=== PATIENT | male | born 1945 | race Caucasian/White ===

== ENCOUNTER → 2016-05-24 | Outpatient (CLI) | payer MEDICARE | END | disposition home or self-care (01) | LOC: YCHH 11:44 | PROVIDERS: ATTEND Emergency Medicine | DX: N18.9 Chronic kidney disease, unspecified (principal); D64.9 Anemia, unspecified; E11.9 Type 2 diabetes mellitus without complications ==

== ENCOUNTER → 2016-12-15 | Outpatient (CLI) | payer MEDICARE | END | disposition home or self-care (01) | LOC: YCHH 11:10 | PROVIDERS: ATTEND Emergency Medicine | DX: I50.9 Heart failure, unspecified (principal); I10 Essential (primary) hypertension; E11.9 Type 2 diabetes mellitus without complications; Z12.5 Encounter for screening for malignant neoplasm of prostate | CPT/HCPCS: 80053; 80061; 83036; 84443; 85025; G0103 ==

== ENCOUNTER → 2017-05-17 | Outpatient (CLI) | payer MEDICARE | LOC: BFHH 08:39 | PROVIDERS: ATTEND Internal Medicine Nephrology | DX: N18.4 Chronic kidney disease, stage 4 (severe) (principal) ==

== ENCOUNTER → 2017-06-02 | Outpatient (CLI) | payer MEDICARE | LOC: BFHH 15:41 | PROVIDERS: ATTEND Internal Medicine Nephrology | DX: N18.4 Chronic kidney disease, stage 4 (severe) (principal) ==

== ENCOUNTER → 2017-06-28 | Outpatient (CLI) | payer MEDICARE | LOC: BFHH 15:24 | PROVIDERS: ATTEND Emergency Medicine | DX: N18.4 Chronic kidney disease, stage 4 (severe) (principal) ==

== ENCOUNTER 2017-12-17 21:40 | Emergency (ER) | payer MEDICARE ==
--- NOTE | 2017-12-17 22:03 | ED.PDOC ---
History of Present Illness - General Chief Complaint: Neuro Symptoms/Deficits Stated Complaint: WEAKNESS Time Seen by Provider: 12/17/17 21:57 Source: family Exam Limitations: no limitations Additional Information: WITNESSED ONSET OF ACUTE WEAKNESS. LAST KNOWN NL 2044. INITIALLY DYSARTHRIA WITH PROGRESSION TO L FACIAL DROOP AND FLACCID L SIDED PARALYSIS. - History of Present Illness Timing/Duration: other - 1.25 HOURS Severity: severe Improving Factors: nothing Worsening Factors: nothing Associated Symptoms: denies symptoms Allergies/Adverse Reactions: Allergies NO KNOWN ALLERGY Allergy (Verified 12/17/17 22:34) Home Medications: Ambulatory Orders Bupropion HCl [Bupropion HCl Sr] 150 mg PO DAILY 01/11/16 Citalopram Hydrobromide 40 mg PO DAILY 01/11/16 Felodipine [Felodipine ER] 10 mg PO DAILY 01/11/16 Furosemide [Lasix] 20 mg PO DAILY 01/11/16 Gemfibrozil 600 mg PO DAILY 01/11/16 Glyburide-Metformin [Glucovance 5-500 mg] 1 tab PO BID 01/11/16 HYDROcodone 10MG/APAP 325MG [[place] 10/325] 1 ea PO PRN 01/11/16 Ibuprofen 200 mg PO DAILY 01/11/16 Insulin Glargine [Toujeo Solostar] 30 unit SC BEDTIME 01/11/16 Lisinopril 40 mg PO DAILY 01/11/16 Lovastatin 20 mg PO DAILY 01/11/16 Metoprolol Tartrate 50 mg PO DAILY 01/11/16 Multiple Vitamins W/ Minerals [Multivitamin Men] 1 tab PO DAILY 01/11/16 Naproxen Sodium-Diphenhydramin [Aleve Pm 220-25 mg] 1 tab PO BEDTIME 01/11/16 Zolpidem Tartrate [Ambien] 10 mg PO DAILY 01/11/16 Review of Systems - Review of Systems Constitutional: States: chills, fever Unable to Obtain Due To: condition - PT CANNOT PROVIDE ROS, FAMILY STATES WAS IN USUAL STATE OF HEALTH PRIOR TO EVENT. Past Medical History (General) - Patient Medical History Hx Seizures: No Hx Stroke: No Hx Dementia: No Hx Asthma: No Hx of COPD: No Hx Cardiac Disorders: Yes Hx Congestive Heart Failure: No Hx Pacemaker: No Hx Hypertension: Yes Hx Thyroid Disease: No Hx Diabetes: Yes Hx Gastroesophageal Reflux: No Hx Renal Disease: No Hx Cancer: Yes - Rt foot tumor Hx of HIV: No Hx Hepatitis C: No Hx MRSA: No - Vaccination History Hx Tetanus, Diphtheria Vaccination: Yes Hx Influenza Vaccination: Yes Hx Pneumococcal Vaccination: Yes - Social History Hx Tobacco Use: No Hx Chewing Tobacco Use: No Hx Alcohol Use: Yes - years ago Hx Substance Use: No Hx Substance Use Treatment: No Hx Depression: No Hx Physical Abuse: No Hx Emotional Abuse: No Hx Suspected Abuse: No - Female History Patient : No Family Medical History - Family History Father Family History: Unknown Physical Exam - Physical Exam General Appearance: Alert, Obese - MORBID, Other - ANXIOUS Eye Exam: bilateral abnormal EOM - DEVIATED TO R Ears, Nose, Throat: hearing grossly normal, normal ENT inspection Neck: non-tender, full range of motion, supple Respiratory: lungs clear, normal breath sounds, no respiratory distress Cardiovascular/Chest: regular rate, rhythm, no murmur Gastrointestinal/Abdominal: non tender, soft, no organomegaly Back Exam: normal inspection Extremity: other - TR EDEMA Neurologic: 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 WILL RESCAN WHILE WATING FOR RADIOLOGY. 12/17/17 23:02 CT NEG PER RADIOLOGY. D/W DR HARDEN IN [facility], AGREES WITH PLAN AND OK FOR TRANSFER. D/W DR ARRIETA OK TO STOP IN ED. D/W FAMILY RISKS VS BENEFITS DISCUSSED THEY AGREE TO TPA. 12/17/17 23:41 AIR EVAC HERE, PT WILL NOT FIT IN HELICOPTER. WILL TAKE VIA GROUND, NO CHANGE IN PE 12/17/17 23:50 PT LEFT ER ENROUTE VIA GROUND FOR [facility]. 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 Copy, Patient Portal Self Enrollment Referrals: ROMINA LARIOS [Primary Care Provider] - 1-2 Weeks Home Medications: Ambulatory Orders Bupropion HCl [Bupropion HCl Sr] 150 mg PO DAILY 01/11/16 Citalopram Hydrobromide 40 mg PO DAILY 01/11/16 Felodipine [Felodipine ER] 10 mg PO DAILY 01/11/16 Furosemide [Lasix] 20 mg PO DAILY 01/11/16 Gemfibrozil 600 mg PO DAILY 01/11/16 Glyburide-Metformin [Glucovance 5-500 mg] 1 tab PO BID 01/11/16 HYDROcodone 10MG/APAP 325MG [[place] [address]] 1 ea PO PRN 01/11/16 Ibuprofen 200 mg PO DAILY 01/11/16 Insulin Glargine [Toujeo Solostar] 30 unit SC BEDTIME 01/11/16 Lisinopril 40 mg PO DAILY 01/11/16 Lovastatin 20 mg PO DAILY 01/11/16 Metoprolol Tartrate 50 mg PO DAILY 01/11/16 Multiple Vitamins W/ Minerals [Multivitamin Men] 1 tab PO DAILY 01/11/16 Naproxen Sodium-Diphenhydramin [Aleve Pm 220-25 mg] 1 tab PO BEDTIME 01/11/16 Zolpidem Tartrate [Ambien] 10 mg PO DAILY 01/11/16 Critical Care Note - Critical Care Note Total Time (mins): 100 Comments: EVENT: ACUTE CVA FINDINGS: L HEMIPARALYSIS, L CN VII DEFICIT, DYSARTHRIA SYSTEM AT RISK: NEUROLOGIC INTERVENTION: INITIATION OF TPA, EMERGENT TRANSFER TO [facility]
--- NOTE | 2017-12-17 22:52 | CT ---
PROCEDURE: CT Head Without Intravenous Contrast CLINICAL INDICATION: The patient is 72 years old and is Male; TECHNIQUE: Axial computed tomography images of the head/brain without intravenous contrast. Sagittal and coronal reformatted images were created and reviewed. This exam was performed according to our departmental dose-optimization program, which includes automated exposure control, adjustment of the mA and/or kV according to patient size and/or use of iterative reconstruction technique. COMPARISON: Prior study from one hour earlier as well as from 01/11/2016. FINDINGS: BRAIN: There are mild patchy slightly progressed areas of hypodensity in the periventricular white matter, extending into the centrum semiovale and talbot radiata bilaterally, which are felt to represent the sequela of small vessel ischemic disease (microangiopathy). Early infarcts within the first 12 hours may not be visible on noncontrast CT. The ricardo/white matter differentiation is intact. NO intra-or extra-axial fluid collections are seen. No hemorrhage. MIDLINE SHIFT: There is NO midline shift. VENTRICLES: There is moderate slightly progressed global atrophy with prominence of the ventricles, sulci and basilar cisterns. BONES/JOINTS: Hyperostosis frontalis interna is noted involving the calvarium. No acute fracture. SOFT TISSUES: See below. VASCULATURE: Intracranial vascular calcifications are noted. SINUSES: Minimal mucoperiosteal thickening of the RIGHT medial maxillary sinus is noted. The soft tissues of the scalp are unremarkable. MASTOID AIR CELLS: Unremarkable as visualized. No mastoid effusion. AUDITORY SYSTEM: There is material in the bilateral external auditory canals which presumably represents cerumen. ORBITS: There has been bilateral cataract surgery. DENTAL: There is dental hardware artifact which mildly obscures some of the posterior fossa. IMPRESSION: No acute intracranial abnormality is identified. THIS REPORT CONTAINS FINDINGS THAT MAY BE CRITICAL TO PATIENT CARE: The findings were verbally communicated via telephone conference with Dr. Anthony Pozo by Dr. Hiro Dow on 12/17/2017 10:49 PM CDT .The results were acknowledged and understood. Electronically signed by: Hiro Dow MD 12/17/2017 10:51 PM CDT
[2017-12-17] MEDS ORDERED: ALTEPLASE 100 MG ONE (22:57)
[2017-12-17] MEDS ORDERED: SODIUM CHLORIDE 0.9% 1000ML 1,000 ML ONE (23:02)
[2017-12-17] MEDS ORDERED: ALTEPLASE 100 MG IV.SOLN IV ONE ×3 (23:06→23:10)
--- NOTE | 2017-12-17 23:06 | RAD ---
EXAM DESCRIPTION: Chest,1 View CLINICAL HISTORY: 72 years Male, left side weakness COMPARISON: Chest x-ray 03/12/2016 FINDINGS: There is a vague opacity in the right midlung zone. No pneumothorax. No significant pleural effusion. Cardiac silhouette appears mildly enlarged. Degenerative changes of the spine noted. IMPRESSION: Vague opacity in the right lower lung zone which may represent an infiltrate versus atelectasis. Electronically signed by: Rey Zhong MD 12/17/2017 11:05 PM CDT
[2017-12-17 23:21] VITALS: TEMP 98.4
[2017-12-17] MEDS: ALTEPLASE 50 MG IVS ONE (23:28)
[2017-12-18 00:28] VITALS: BP 146/49; O2SAT 97
[2017-12-20] MEDS: ALTEPLASE 50 MG IVS ONE (08:07)
== END 2017-12-17 23:50 | disposition short-term general hospital (02) ==
LOC: ER 21:40
DX: I63.9 Cerebral infarction, unspecified (principal); G81.04 Flaccid hemiplegia affecting left nondominant side; R29.810 Facial weakness; R47.1 Dysarthria and anarthria; E11.9 Type 2 diabetes mellitus without complications; I10 Essential (primary) hypertension; E66.01 Morbid (severe) obesity due to excess calories; Z79.4 Long term (current) use of insulin; Z79.899 Other long term (current) drug therapy; Z85.89 Personal history of malignant neoplasm of other organs and systems; Z68.43 Body mass index [BMI] 50.0-59.9, adult
CPT/HCPCS: 36415; 70450; 71045; 80053; 82550; 82553; 82948; 84484; 85025; 85610; 85730; 93005; J2997; J7030

== ENCOUNTER 2018-05-05 20:51 | Emergency (ER) | payer MEDICARE ==
[2018-05-05] MEDS ORDERED: NITROGLYCERIN 0.4 MG 25 EA TAB SL ONE ×3 (20:54→21:09)
--- NOTE | 2018-05-05 20:59 | ED.PDOC ---
History of Present Illness - General Chief Complaint: Respiratory Problem Stated Complaint: SOB Time Seen by Provider: 05/05/18 20:59 Source: patient, family - son, EMS Exam Limitations: no limitations - History of Present Illness Initial Comments: Kim Bee 73 y/o male NH resident at [facility] stated that he had sob since yesterday which got worse earlier tonight with cough ,wheezing and low grade fever.His flu immunization UTD.No chest pains symptoms.Had history of CHF,CAD,DM,JAIMEE,CVA w/ residual left hemiparesis.Also has CPAP at bedtime but not using them instead just given O2/NC Timing/Duration: 24 hours Severity: moderate Activities at Onset: none Possible Cause: no prior episodes Improving Factors: nothing Worsening Factors: movement Associated Symptoms: cough Respiratory Risk Factors: other - chronic medical problems Allergies/Adverse Reactions: Allergies NO KNOWN ALLERGY Allergy (Verified 12/17/17 22:34) Home Medications: Ambulatory Orders Bupropion HCl [Bupropion HCl Sr] 150 mg PO DAILY 01/11/16 Citalopram Hydrobromide 40 mg PO DAILY 01/11/16 Felodipine [Felodipine ER] 10 mg PO DAILY 01/11/16 Furosemide [Lasix] 20 mg PO DAILY 01/11/16 Gemfibrozil 600 mg PO DAILY 01/11/16 Glyburide-Metformin [Glucovance 5-500 mg] 1 tab PO BID 01/11/16 HYDROcodone 10MG/APAP 325MG [[place] [address]] 1 ea PO PRN 01/11/16 Ibuprofen 200 mg PO DAILY 01/11/16 Insulin Glargine [Toujeo Solostar] 30 unit SC BEDTIME 01/11/16 Lisinopril 40 mg PO DAILY 01/11/16 Lovastatin 20 mg PO DAILY 01/11/16 Metoprolol Tartrate 50 mg PO DAILY 01/11/16 Multiple Vitamins W/ Minerals [Multivitamin Men] 1 tab PO DAILY 01/11/16 Naproxen Sodium-Diphenhydramin [Aleve Pm 220-25 mg] 1 tab PO BEDTIME 01/11/16 Zolpidem Tartrate [Ambien] 10 mg PO DAILY 01/11/16 Review of Systems - Review of Systems Constitutional: States: no symptoms reported EENTM: States: no symptoms reported Respiratory: States: see HPI, cough Cardiology: States: see HPI Gastrointestinal/Abdominal: States: no symptoms reported Genitourinary: States: frequency Musculoskeletal: States: no symptoms reported Skin: States: no symptoms reported Neurological: States: see HPI All other Systems: Reviewed and Negative, No Change from Baseline Past Medical History (General) - Patient Medical History Hx Seizures: No Hx Stroke: No Hx Dementia: No Hx Asthma: No Hx of COPD: No Hx Cardiac Disorders: Yes Hx Congestive Heart Failure: Yes Hx Pacemaker: No Hx Hypertension: Yes Hx Thyroid Disease: No Hx Diabetes: Yes Hx Gastroesophageal Reflux: No Hx Renal Disease: No Hx Cancer: Yes - Rt foot tumor Hx of HIV: No Hx Hepatitis C: No Hx MRSA: No Hx Other PMH: Yes - sleep apnea Surgical History: other - cardiac stent;right foot - Vaccination History Hx Tetanus, Diphtheria Vaccination: Yes Hx Influenza Vaccination: Yes Hx Pneumococcal Vaccination: Yes - Social History Hx Tobacco Use: No Hx Chewing Tobacco Use: No Hx Alcohol Use: Yes - years ago Hx Substance Use: No Hx Substance Use Treatment: No Hx Depression: No Hx Physical Abuse: No Hx Emotional Abuse: No Hx Suspected Abuse: No - Activities of Daily Living Patient Lives Alone: No Halfway/Assisted Living (if applicable):: [facility] - bed bound since he had CVA Grooming Ability: Minimum Assistance Eating (Feeding) Ability: Minimum Assistance Toileting Ability: Total Assistance - Female History Patient : No Family Medical History - Family History Father Family History: Unknown Hx Cardiac Disease: Yes Hx Family Cancer: Yes - dad Hx Family;Other: Alzheimers Dementia -mom Physical Exam - Physical Exam General Appearance: Alert, Anxious, No apparent distress, Other - morbidly obese Eyes, Ears, Nose, Throat Exam: PERRL/EOMI, normal ENT inspection, pharynx normal Neck: non-tender, full range of motion, supple, normal inspection Respiratory: chest non-tender, no respiratory distress, no accessory muscle use, wheezing Cardiovascular/Chest: normal peripheral pulses, tachycardia Peripheral Pulses: radial,right: 1+, radial,left: 1+ Gastrointestinal/Abdominal: non tender, soft, other - obese Extremity: no pedal edema, no calf tenderness Neurologic: alert, oriented x 3, motor weakness - left side Skin Exam: normal color, warm/dry Progress - Progress Progress: 05/05/18 21:54 Vital Signs - 8 hr 05/05/18 05/05/18 05/05/18 20:58 21:07 21:08 Temperature 100.4 F H Pulse Rate 139 H Pulse Rate [ 138 H 138 H monitor] Respiratory 28 H 28 H 27 H Rate Blood Pressure 162/117 [Left Arm] O2 Sat by Pulse 92 L 95 Oximetry 05/06/18 00:24 D/W Shauna Hanna -Hospitalist for admit but with elevated troponin need to be transferred to [facility] - Results/Orders Results/Orders: 05/05/18 21:01 SVN/Updraft Therapy .ONCE URINALYSIS Stat 05/05/18 21:15 EKG STAT 05/05/18 21:17 Sodium Chloride 0.9% 1000ML [Ns 1000 ml] 1,000 ml IVS .QD 05/05/18 21:59 BLOOD CULTURE Stat 05/05/18 22:30 EKG STAT 05/06/18 00:06 SVN/Updraft Therapy .PRN 05/06/18 00:07 SVN/Updraft Therapy .ONCE 05/06/18 09:00 [facility] Daily [facility] Daily Laboratory Results - last 24 hr 05/05/18 05/05/18 05/05/18 21:01 21:01 21:48 WBC 11.0 H RBC 4.16 L Hgb 12.2 L Hct 37.1 L MCV 89.2 MCH 29.3 MCHC 32.9 L RDW 15.5 H Plt Count 299 MPV 8.4 Absolute Neuts (auto) 9.30 H Absolute Lymphs (auto) 0.90 L Absolute Monos (auto) 0.80 Absolute Eos (auto) 0.00 Absolute Basos (auto) 0.00 Neutrophils % 84.7 H Lymphocytes % 7.9 L Monocytes % 6.8 Eosinophils % 0.2 L Basophils % 0.4 PT 12.1 H INR 1.21 H PTT (SP) 33.6 H pCO2 36 pO2 71 L HCO3 20.6 ABG pH 7.380 ABG O2 Saturation 95.7 ABG Base Excess -3.5 ABG Deoxyhemoglobin 4.2 Oxyhemoglobin % 93.3 L Carboxyhemoglobin % 1.3 Methemoglobin % Sat 1.2 Calc Total Hemoglobin 10.7 L Sodium 135 Potassium 4.0 Chloride 103 Carbon Dioxide 22 Anion Gap 14.0 BUN 44 H Creatinine 2.91 H BUN/Creatinine Ratio 15.1 Random Glucose 310 H Serum Osmolality 293.0 Lactic Acid 1.0 Calcium 8.3 L Magnesium 2.0 Total Bilirubin 0.3 Direct Bilirubin 0.1 Indirect Bilirubin 0.2 AST 12 ALT 9 L Alkaline Phosphatase 90 Creatine Kinase 69 CK-MB (CK-2) 1.8 CK-MB (CK-2) % Not Reportable Troponin I 0.14 H* B-Natriuretic Peptide 1930.0 H* Serum Total Protein 6.7 Albumin 2.6 L 05/05/18 22:59 WBC RBC Hgb Hct MCV MCH MCHC RDW Plt Count MPV Absolute Neuts (auto) Absolute Lymphs (auto) Absolute Monos (auto) Absolute Eos (auto) Absolute Basos (auto) Neutrophils % Lymphocytes % Monocytes % Eosinophils % Basophils % PT INR PTT (SP) pCO2 pO2 HCO3 ABG pH ABG O2 Saturation ABG Base Excess ABG Deoxyhemoglobin Oxyhemoglobin % Carboxyhemoglobin % Methemoglobin % Sat Calc Total Hemoglobin Sodium Potassium Chloride Carbon Dioxide Anion Gap BUN Creatinine BUN/Creatinine Ratio Random Glucose Serum Osmolality Lactic Acid Calcium Magnesium Total Bilirubin Direct Bilirubin Indirect Bilirubin AST ALT Alkaline Phosphatase Creatine Kinase CK-MB (CK-2) CK-MB (CK-2) % Troponin I 0.18 H* B-Natriuretic Peptide Serum Total Protein Albumin D/W patient family test result and needing transfer to [facility] agrred with plan - EKG/XRAY/CT EKG: Atrial, Fibrillation Comments: HR-152;PVC XRAY: chest - infiltrates right upper lobe and lung base - Additional EKG/XRAY/Consults EKG #2: Atrial, Fibrillation Departure - Departure Clinical Impression: Atrial fibrillation with RVR, CKD (chronic kidney disease) stage 3, GFR 30-59 ml/min, Non-ST elevation NC (NSTEMI), Morbid obesity with BMI of 50.0-59.9, adult, Diabetes 1.5, managed as type 1, Hemiparesis due to old cerebrovascular accident Pneumonia Qualifiers: Pneumonia type: due to unspecified organism Laterality: right Lung location: upper lobe of lung Qualified Code(s): J18.1 - Lobar pneumonia, unspecified organism CHF, acute on chronic Qualifiers: Heart failure type: unspecified Qualified Code(s): I50.9 - Heart failure, unspecified Time of Disposition: 00:33 Disposition: Transfer to Hospital Condition: Fair Departure Forms: Patient Portal Self Enrollment Referrals: ROMINA LAROIS [Primary Care Provider] - 1-2 Weeks Home Medications: Ambulatory Orders Bupropion HCl [Bupropion HCl Sr] 150 mg PO DAILY 01/11/16 Citalopram Hydrobromide 40 mg PO DAILY 01/11/16 Felodipine [Felodipine ER] 10 mg PO DAILY 01/11/16 Furosemide [Lasix] 20 mg PO DAILY 01/11/16 Gemfibrozil 600 mg PO DAILY 01/11/16 Glyburide-Metformin [Glucovance 5-500 mg] 1 tab PO BID 01/11/16 HYDROcodone 10MG/APAP 325MG [[place] ] 1 ea PO PRN 01/11/16 Ibuprofen 200 mg PO DAILY 01/11/16 Insulin Glargine [Toujeo Solostar] 30 unit SC BEDTIME 01/11/16 Lisinopril 40 mg PO DAILY 01/11/16 Lovastatin 20 mg PO DAILY 01/11/16 Metoprolol Tartrate 50 mg PO DAILY 01/11/16 Multiple Vitamins W/ Minerals [Multivitamin Men] 1 tab PO DAILY 01/11/16 Naproxen Sodium-Diphenhydramin [Aleve Pm 220-25 mg] 1 tab PO BEDTIME 01/11/16 Zolpidem Tartrate [Ambien] 10 mg PO DAILY 01/11/16 Transfer to Outside Facility - Transfer Information Accepting Provider:: D/W Dr. Jeffries-Hospitalist Accepting Facility: [facility] [place] Reason for Transfer: required specialist not available - beater tender
[2018-05-05] MEDS ORDERED: IPRATROPIUM/ALBUTEROL 3 ML VIAL NEB ONE ×2 (21:00→21:03)
[2018-05-05] MEDS ORDERED: ASPIRIN (CHEWABLE) 81 MG TAB PO ONE (21:03)
[2018-05-05] MEDS ORDERED: SODIUM CHLORIDE 0.9% 1000ML 1,000 ML IVS ONE (21:16)
[2018-05-05] MEDS ORDERED: SODIUM CHLORIDE 0.9% 1000ML 1,000 ML IVS PRN (21:17)
--- NOTE | 2018-05-05 21:31 | RAD ---
EXAM: Chest,1 View CLINICAL INDICATION: Shortness of breath COMPARISON: 12/17/2017 FINDINGS: A single view of the chest reveals mild cardiomegaly. The pulmonary vessels are unremarkable. Infiltrates are seen in the right upper lobe and right lung base. The left lung is clear. There is no pneumothorax. IMPRESSION: Right-sided pulmonary infiltrates, suspicious for pneumonia. Electronically signed by: Hans Wu MD 05/05/2018 9:28 PM ARTISTIC DIRECTOR
[2018-05-05] MEDS ORDERED: levoFLOXacin 500MG IV 500 MG in PREMIX BAG 1 BAG IVPB ONE (22:13)
[2018-05-05] MEDS ORDERED: levoFLOXacin 500MG IV 100 ML IVPB ONE (22:15)
[2018-05-05] MEDS ORDERED: INSULIN, REG.(HUMAN) 100 U/ML VIAL SUBCU ONE (22:19)
[2018-05-05] MEDS ORDERED: hydrALAZINE HCl 20 MG/ML VIAL IV ONE (23:07)
[2018-05-05] MEDS ORDERED: LABETALOL INJ 5 MG/ML VIAL ONE (23:08)
[2018-05-05] MEDS ORDERED: LABETALOL INJ 5 MG/ML VIAL IV ONE (23:11)
[2018-05-06] MEDS ORDERED: BUMETANIDE 0.25 MG/ML VIAL IV ONE (00:05)
[2018-05-06] MEDS ORDERED: LEVALBUTEROL NEBS 1.25 MG/3 ML VIAL NEB ONE (00:06)
[2018-05-06] MEDS ORDERED: HEPARIN PREMIX 500 ML ONE (00:29)
[2018-05-06] MEDS ORDERED: HEPARIN PREMIX 25,000 UNITS in PREMIX BAG 1 BAG IVS SCH (00:30)
[2018-05-06 01:10] VITALS: BP 147/83; TEMP 97.7
[2018-05-06 01:13] VITALS: O2SAT 94
== END 2018-05-06 01:00 | disposition short-term general hospital (02) ==
LOC: ER 20:51
DX: I21.4 Non-ST elevation (NSTEMI) myocardial infarction (principal); J18.9 Pneumonia, unspecified organism; I50.9 Heart failure, unspecified; I48.91 Unspecified atrial fibrillation; N18.3 Chronic kidney disease, stage 3 (moderate); E66.01 Morbid (severe) obesity due to excess calories; E10.22 Type 1 diabetes mellitus with diabetic chronic kidney disease; R00.0 Tachycardia, unspecified; I69.354 Hemiplegia and hemiparesis following cerebral infarction affecting left non-dominant side; I13.0 Hypertensive heart and chronic kidney disease with heart failure and stage 1 through stage 4 chronic kidney disease, or unspecified chronic kidney disease; I25.10 Atherosclerotic heart disease of native coronary artery without angina pectoris; Z68.43 Body mass index [BMI] 50.0-59.9, adult; Z79.4 Long term (current) use of insulin; Z79.899 Other long term (current) drug therapy
CPT/HCPCS: 36415; 36600; 71045; 80048; 80076; 82550; 82553; 82803; 82805; 82948; 83605; 83880; 84484; 85025; 85610; 85730; 87040; 87502; 93005; 94640; J1644; J1956; J3490; J7614; J7620

== ENCOUNTER → 2018-06-12 | Outpatient (CLI) | payer MEDICARE | LOC: GOCC 16:31 | PROVIDERS: ATTEND Emergency Medicine | DX: E11.40 Type 2 diabetes mellitus with diabetic neuropathy, unspecified (principal); I69.354 Hemiplegia and hemiparesis following cerebral infarction affecting left non-dominant side; E66.01 Morbid (severe) obesity due to excess calories ==

== ENCOUNTER 2018-07-07 17:00 | Emergency (ER) | payer MEDICARE ==
--- NOTE | 2018-07-07 18:34 | RAD ---
EXAM DESCRIPTION: XR Chest,1 View CLINICAL HISTORY: 73 years Male dyspnea TECHNIQUE: Single frontal view of the chest. COMPARISON: No prior exams provided for comparison. FINDINGS: Again seen is moderate enlargement of the cardiac silhouette with diffuse pulmonary vascular prominence. Mild pulmonary edema with a trace right pleural effusion. Previously seen right midlung infiltrate has nearly completely resolved. IMPRESSION: Suspected congestive heart failure with a trace right pleural effusion. Electronically signed by: Fanta Ortiz MD 07/07/2018 6:31 PM CDT
[2018-07-07] MEDS ORDERED: IPRATROPIUM/ALBUTEROL 3 ML VIAL NEB ONE (19:00)
--- NOTE | 2018-07-07 19:03 | ED.PDOC ---
History of Present Illness - General Chief Complaint: General Stated Complaint: altered mental status Time Seen by Provider: 07/07/18 17:57 Source: patient, RN notes reviewed, Vital Signs reviewed, family Exam Limitations: no limitations - History of Present Illness Initial Comments: transfer from group home for reported AMS & dyspnea beginning today. Pt. denies any pain. Recently ill from MRSA infection to his legs. No fevers, vomiting or diarrhea. Fell to his knees earlier today. Timing/Duration: 4-6 hours Severity: moderate Improving Factors: nothing Worsening Factors: nothing Associated Symptoms: confusion, fatigue, weakness Allergies/Adverse Reactions: Allergies NO KNOWN ALLERGY Allergy (Verified 12/17/17 22:34) Home Medications: Ambulatory Orders Bupropion HCl [Bupropion HCl Sr] 150 mg PO DAILY 01/11/16 Citalopram Hydrobromide 40 mg PO DAILY 01/11/16 Felodipine [Felodipine ER] 10 mg PO DAILY 01/11/16 Furosemide [Lasix] 20 mg PO DAILY 01/11/16 Gemfibrozil 600 mg PO DAILY 01/11/16 Glyburide-Metformin [Glucovance 5-500 mg] 1 tab PO BID 01/11/16 HYDROcodone 10MG/APAP 325MG [[place] [address]] 1 ea PO PRN 01/11/16 Ibuprofen 200 mg PO DAILY 01/11/16 Insulin Glargine [Toujeo Solostar] 30 unit SC BEDTIME 01/11/16 Lisinopril 40 mg PO DAILY 01/11/16 Lovastatin 20 mg PO DAILY 01/11/16 Metoprolol Tartrate 50 mg PO DAILY 01/11/16 Multiple Vitamins W/ Minerals [Multivitamin Men] 1 tab PO DAILY 01/11/16 Naproxen Sodium-Diphenhydramin [Aleve Pm 220-25 mg] 1 tab PO BEDTIME 01/11/16 Zolpidem Tartrate [Ambien] 10 mg PO DAILY 01/11/16 Review of Systems - Review of Systems Constitutional: States: see HPI EENTM: States: no symptoms reported Respiratory: States: see HPI, short of breath Cardiology: States: no symptoms reported Gastrointestinal/Abdominal: States: no symptoms reported Genitourinary: States: no symptoms reported Musculoskeletal: States: no symptoms reported Skin: States: see HPI Neurological: States: see HPI Hematologic/Lymphatic: States: no symptoms reported Past Medical History (General) - Patient Medical History Hx Seizures: No Hx Stroke: Yes Hx Dementia: Yes Hx Asthma: No Hx of COPD: Yes Hx Cardiac Disorders: Yes Hx Congestive Heart Failure: Yes Hx Pacemaker: No Hx Hypertension: Yes Hx Thyroid Disease: No Hx Diabetes: Yes Hx Gastroesophageal Reflux: No Hx Renal Disease: Yes Hx Cancer: Yes - Rt foot tumor Hx of HIV: No Hx Hepatitis C: No Hx MRSA: Yes MRSA Source:: Wound - Vaccination History Hx Tetanus, Diphtheria Vaccination: Yes Hx Influenza Vaccination: Yes Hx Pneumococcal Vaccination: Yes - Social History Hx Tobacco Use: No Hx Chewing Tobacco Use: No Hx Alcohol Use: No Hx Substance Use: No Hx Substance Use Treatment: No Hx Depression: Yes Hx Physical Abuse: No Hx Emotional Abuse: No Hx Suspected Abuse: No - Activities of Daily Living Group Home/Assisted Living (if applicable):: [facility] [place] - Female History Patient : No Family Medical History - Family History Father Family History: Unknown Hx Cardiac Disease: Yes Hx Family Cancer: Yes - dad Hx Family;Other: Alzheimers Dementia -mom Physical Exam - Physical Exam General Appearance: Alert, Comfortable Eye Exam: bilateral normal ENT Exam: normal ENT inspection Respiratory: no accessory muscle use, decreased breath sounds, crackles - RR 24 Cardiovascular/Chest: no JVD, no murmur, irregularly irregular Gastrointestinal/Abdominal: non tender, soft Extremities Exam: normal range of motion, no evidence of injury, edema Mental Status: alert, other - 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 Otherwise unchanged. Family reports he does have a h/o AF. - EKG/XRAY/CT EKG: Atrial - HR 92, nml axis, QRS, ST segments & T waves. Prolonged QT interval., Fibrillation XRAY: chest - pulmonary edema - Consult/PCP Time Called: 19:16 Consult/PCP: Dr. Montez Departure - Departure Clinical Impression: Morbid obesity with BMI of 50.0-59.9, adult, COPD (chronic obstructive pulmonary disease) with chronic bronchitis CHF, acute on chronic Qualifiers: Heart failure type: unspecified Qualified Code(s): I50.9 - Heart failure, unspecified Atrial fibrillation Qualifiers: Atrial fibrillation type: chronic Qualified Code(s): I48.2 - Chronic atrial fibrillation Renal failure Qualifiers: Renal failure chronicity: chronic Chronic kidney disease stage: unspecified stage Qualified Code(s): N18.9 - Chronic kidney disease, unspecified Time of Disposition: 19:17 Disposition: Transfer to Hospital Condition: Serious Home Medications: Ambulatory Orders Bupropion HCl [Bupropion HCl Sr] 150 mg PO DAILY 01/11/16 Citalopram Hydrobromide 40 mg PO DAILY 01/11/16 Felodipine [Felodipine ER] 10 mg PO DAILY 01/11/16 Furosemide [Lasix] 20 mg PO DAILY 01/11/16 Gemfibrozil 600 mg PO DAILY 01/11/16 Glyburide-Metformin [Glucovance 5-500 mg] 1 tab PO BID 01/11/16 HYDROcodone 10MG/APAP 325MG [[place] 10/325] 1 ea PO PRN 01/11/16 Ibuprofen 200 mg PO DAILY 01/11/16 Insulin Glargine [Toujeo Solostar] 30 unit SC BEDTIME 01/11/16 Lisinopril 40 mg PO DAILY 01/11/16 Lovastatin 20 mg PO DAILY 01/11/16 Metoprolol Tartrate 50 mg PO DAILY 01/11/16 Multiple Vitamins W/ Minerals [Multivitamin Men] 1 tab PO DAILY 01/11/16 Naproxen Sodium-Diphenhydramin [Aleve Pm 220-25 mg] 1 tab PO BEDTIME 01/11/16 Zolpidem Tartrate [Ambien] 10 mg PO DAILY 01/11/16 Transfer to Outside Facility - Transfer Information Accepting Provider:: Dr. Montez Accepting Facility: [facility] Reason for Transfer: required specialist not available
[2018-07-07] MEDS ORDERED: FUROSEMIDE INJ 40 MG/4 ML VIAL IV ONE (19:15)
[2018-07-07 20:20] VITALS: TEMP 98.1
[2018-07-07 22:07] VITALS: BP 159/92; O2SAT 96
== END 2018-07-07 20:49 | disposition short-term general hospital (02) ==
LOC: ER 17:00
DX: I50.9 Heart failure, unspecified (principal); I48.2 Chronic atrial fibrillation; J44.9 Chronic obstructive pulmonary disease, unspecified; E66.01 Morbid (severe) obesity due to excess calories; N18.9 Chronic kidney disease, unspecified; R41.82 Altered mental status, unspecified; E11.22 Type 2 diabetes mellitus with diabetic chronic kidney disease; I13.0 Hypertensive heart and chronic kidney disease with heart failure and stage 1 through stage 4 chronic kidney disease, or unspecified chronic kidney disease; F32.9 Major depressive disorder, single episode, unspecified; F03.90 Unspecified dementia, unspecified severity, without behavioral disturbance, psychotic disturbance, mood disturbance, and anxiety; Z68.43 Body mass index [BMI] 50.0-59.9, adult; Z86.73 Personal history of transient ischemic attack (TIA), and cerebral infarction without residual deficits; Z85.89 Personal history of malignant neoplasm of other organs and systems; Z79.899 Other long term (current) drug therapy; Z79.4 Long term (current) use of insulin; Z86.14 Personal history of Methicillin resistant Staphylococcus aureus infection
CPT/HCPCS: 36415; 71045; 80048; 81001; 82550; 82553; 83605; 83880; 84484; 85025; 85379; 85610; 85730; 87040; 93005; 94640; J1940; J7620

== ENCOUNTER 2018-07-19 22:04 | Emergency (ER) | payer MEDICARE ==
[2018-07-19] MEDS ORDERED: SODIUM CHLORIDE 0.9% (FLUSH) 10 ML SYG IV PRN (22:26)
[2018-07-19] MEDS ORDERED: IPRATROPIUM/ALBUTEROL 3 ML VIAL NEB ONE (22:29)
--- NOTE | 2018-07-19 22:49 | ED.PDOC ---
History of Present Illness - General Chief Complaint: Respiratory Problem Stated Complaint: "trouble breathing" Time Seen by Provider: 07/19/18 22:22 Source: patient Exam Limitations: no limitations - History of Present Illness Initial Comments: Kim Bee 73 y/o male resident at [facility] brought by EMS to ER with progressive worsening of SOB for the last one week.Has CHF,CAD,DM,JAIMEE,CVA w/ left hemiparesis.Denies cough ,fever chills.Recently hospitalized at [facility] w/ MRSA to his left leg presently on iv antibiotics. Timing/Duration: 1 week, getting worse Severity: moderate Activities at Onset: none Possible Cause: frequent episodes Improving Factors: nothing Worsening Factors: nothing Associated Symptoms: other - see hpi Allergies/Adverse Reactions: Allergies NO KNOWN ALLERGY Allergy (Verified 12/17/17 22:34) Home Medications: Ambulatory Orders Bupropion HCl [Bupropion HCl Sr] 150 mg PO DAILY 01/11/16 Felodipine [Felodipine ER] 10 mg PO DAILY 01/11/16 Furosemide [Lasix] 20 mg PO DAILY 01/11/16 Glyburide-Metformin [Glucovance 5-500 mg] 1 tab PO BID 01/11/16 HYDROcodone 10MG/APAP 325MG [[place] 103[address]] 1 ea PO PRN 01/11/16 Insulin Glargine [Toujeo Solostar] 30 unit SC BEDTIME 01/11/16 Multiple Vitamins W/ Minerals [Multivitamin Men] 1 tab PO DAILY 01/11/16 Naproxen Sodium-Diphenhydramin [Aleve Pm 220-25 mg] 1 tab PO BEDTIME 01/11/16 RX: Citalopram Hydrobromide 40 mg PO DAILY 01/11/16 RX: Gemfibrozil 600 mg PO DAILY 01/11/16 RX: Ibuprofen 200 mg PO DAILY 01/11/16 RX: Lisinopril 40 mg PO DAILY 01/11/16 RX: Lovastatin 20 mg PO DAILY 01/11/16 RX: Metoprolol Tartrate 50 mg PO DAILY 01/11/16 Zolpidem Tartrate [Ambien] 10 mg PO DAILY 01/11/16 Review of Systems - Review of Systems Constitutional: States: no symptoms reported EENTM: States: no symptoms reported Respiratory: States: see HPI Cardiology: States: no symptoms reported Gastrointestinal/Abdominal: States: no symptoms reported Genitourinary: States: no symptoms reported Musculoskeletal: States: no symptoms reported Skin: States: no symptoms reported Neurological: States: see HPI Endocrine: States: no symptoms reported Past Medical History (General) - Patient Medical History Hx Seizures: No Hx Stroke: Yes Hx Dementia: Yes Hx Asthma: No Hx of COPD: Yes Hx Cardiac Disorders: Yes - hx stent placed Hx Congestive Heart Failure: Yes Hx Pacemaker: No Hx Hypertension: Yes Hx Thyroid Disease: No Hx Diabetes: Yes Hx Gastroesophageal Reflux: No Hx Renal Disease: Yes Hx Cancer: Yes - Rt foot tumor Hx of HIV: No Hx Hepatitis C: No Hx MRSA: Yes MRSA Source:: Wound Surgical History: other - Vaccination History Hx Tetanus, Diphtheria Vaccination: Yes Hx Influenza Vaccination: Yes Hx Pneumococcal Vaccination: Yes - Social History Hx Tobacco Use: No Hx Chewing Tobacco Use: No Hx Alcohol Use: No Hx Substance Use: No Hx Substance Use Treatment: No Hx Depression: Yes Hx Physical Abuse: No Hx Emotional Abuse: No Hx Suspected Abuse: No - Activities of Daily Living Correction/Assisted Living (if applicable):: [facility] [place] - Female History Patient : No Family Medical History - Family History Father Family History: Unknown Hx Cardiac Disease: Yes Hx Family Cancer: Yes - dad Hx Family;Other: Alzheimers Dementia -mom Physical Exam - Physical Exam General Appearance: Alert, Comfortable, No apparent distress, Obese Eyes, Ears, Nose, Throat Exam: PERRL/EOMI, normal ENT inspection, TMs normal, pharynx normal Neck: non-tender, supple, normal inspection Respiratory: chest non-tender, no respiratory distress, decreased breath sounds, rales - bases Cardiovascular/Chest: normal peripheral pulses, no murmur, irregularly irregular Peripheral Pulses: radial,right: 2+, radial,left: 2+ Gastrointestinal/Abdominal: non tender, soft, no organomegaly Extremity: no pedal edema, pedal edema - +1 Neurologic: alert, oriented x 3 Skin Exam: normal color, warm/dry, rash - back of legs Lymphatic: no adenopathy Progress - Progress Progress: 07/19/18 22:55 Vital Signs - 8 hr 07/19/18 22:22 Temperature 98.1 F Pulse Rate [ 86 left] Respiratory 22 Rate Blood Pressure 155/84 [left] O2 Sat by Pulse 100 Oximetry - Results/Orders Results/Orders: 07/19/18 22:26 Sodium Chloride 0.9% (Flush) [Saline Flush Syringe] 10 ml IV PRN PRN 07/19/18 22:27 IV Care:Saline Lock per Protoc QSHIFT Telemetry .ONCE 07/19/18 22:29 SVN/Updraft Therapy .PRN 07/19/18 22:30 EKG STAT 07/20/18 09:00 Pulse Ox Daily Updrafts Daily Laboratory Results - last 24 hr 07/19/18 07/19/18 07/19/18 23:02 23:02 23:02 WBC 5.9 RBC 3.74 L Hgb 10.6 L Hct 32.7 L MCV 87.7 MCH 28.2 MCHC 32.2 L RDW 16.7 H Plt Count 310 MPV 8.3 Absolute Neuts (auto) 3.50 Absolute Lymphs (auto) 1.20 Absolute Monos (auto) 0.50 Absolute Eos (auto) 0.60 H Absolute Basos (auto) 0.00 Neutrophils % 59.1 Lymphocytes % 20.7 Monocytes % 9.0 Eosinophils % 10.6 H Basophils % 0.6 PT 12.4 H INR 1.24 H PTT (SP) 34.6 H Sodium 140 Potassium 4.4 Chloride 108 Carbon Dioxide 24 Anion Gap 12.4 BUN 31 H Creatinine 2.23 H BUN/Creatinine Ratio 13.9 Random Glucose 223 H Serum Osmolality 292.9 Lactic Acid Calcium 8.4 Total Bilirubin 0.7 AST 12 ALT 10 Alkaline Phosphatase 66 B-Natriuretic Peptide 653.0 H* Serum Total Protein 5.9 L Albumin 2.9 L Globulin 3.0 Albumin/Globulin Ratio 1.0 L 07/19/18 23:02 WBC RBC Hgb Hct MCV MCH MCHC RDW Plt Count MPV Absolute Neuts (auto) Absolute Lymphs (auto) Absolute Monos (auto) Absolute Eos (auto) Absolute Basos (auto) Neutrophils % Lymphocytes % Monocytes % Eosinophils % Basophils % PT INR PTT (SP) Sodium Potassium Chloride Carbon Dioxide Anion Gap BUN Creatinine BUN/Creatinine Ratio Random Glucose Serum Osmolality Lactic Acid 0.9 Calcium Total Bilirubin AST ALT Alkaline Phosphatase B-Natriuretic Peptide Serum Total Protein Albumin Globulin Albumin/Globulin Ratio Zoar better after Bumex IV - EKG/XRAY/CT EKG: Atrial, Fibrillation Comments: HR-84 XRAY: chest - mild chf and trace pleural effusion Departure - Departure Clinical Impression: SOB (shortness of breath), History of MRSA infection CHF exacerbation Qualifiers: Heart failure type: combined systolic and diastolic Qualified Code(s): I50.43 - Acute on chronic combined systolic (congestive) and diastolic (congestive) heart failure Time of Disposition: 00:50 Disposition: Discharge to SNF Condition: Fair Departure Forms: ED Discharge - Pt. Copy, Patient Portal Self Enrollment Referrals: JAYY SIMPSON [Primary Care Provider] - 1-2 Weeks Home Medications: Ambulatory Orders Bupropion HCl [Bupropion HCl Sr] 150 mg PO DAILY 01/11/16 Felodipine [Felodipine ER] 10 mg PO DAILY 01/11/16 Furosemide [Lasix] 20 mg PO DAILY 01/11/16 Glyburide-Metformin [Glucovance 5-500 mg] 1 tab PO BID 01/11/16 HYDROcodone 10MG/APAP 325MG [[place] [address]] 1 ea PO PRN 01/11/16 Insulin Glargine [Toujeo Solostar] 30 unit SC BEDTIME 01/11/16 Multiple Vitamins W/ Minerals [Multivitamin Men] 1 tab PO DAILY 01/11/16 Naproxen Sodium-Diphenhydramin [Aleve Pm 220-25 mg] 1 tab PO BEDTIME 01/11/16 RX: Citalopram Hydrobromide 40 mg PO DAILY 01/11/16 RX: Gemfibrozil 600 mg PO DAILY 01/11/16 RX: Ibuprofen 200 mg PO DAILY 01/11/16 RX: Lisinopril 40 mg PO DAILY 01/11/16 RX: Lovastatin 20 mg PO DAILY 01/11/16 RX: Metoprolol Tartrate 50 mg PO DAILY 01/11/16 Zolpidem Tartrate [Ambien] 10 mg PO DAILY 01/11/16 Additional Instructions: Continue with all home medications and home oxygen;Return to Emergency room as needed
[2018-07-19] MEDS ORDERED: BUMETANIDE 0.25 MG/ML VIAL IV ONE (22:52)
--- NOTE | 2018-07-19 23:28 | RAD ---
EXAM DESCRIPTION: XR Chest,1 View CLINICAL HISTORY: 73 years Male "trouble breathing", CHF TECHNIQUE: One view of the chest. COMPARISON: Comparison is made to the prior examination dated 07/07/2018. FINDINGS: Stable enlarged cardiac silhouette with diffuse pulmonary vascular prominence. Again seen is a trace right pleural effusion. No focal airspace consolidation or pneumothorax. IMPRESSION: Mild congestive heart failure with a trace right pleural effusion. Electronically signed by: Fanta Ortiz MD 07/19/2018 11:26 PM CDT
[2018-07-20] MEDS ORDERED: FUROSEMIDE 40 MG TAB PO ONE (00:27)
[2018-07-20 00:35] VITALS: BP 169/96; O2SAT 95
[2018-07-20 01:08] VITALS: TEMP 97.9
== END 2018-07-20 01:13 ==
LOC: ER 22:04
DX: I50.43 Acute on chronic combined systolic (congestive) and diastolic (congestive) heart failure (principal); R06.02 Shortness of breath; B95.62 Methicillin resistant Staphylococcus aureus infection as the cause of diseases classified elsewhere; I25.10 Atherosclerotic heart disease of native coronary artery without angina pectoris; I69.354 Hemiplegia and hemiparesis following cerebral infarction affecting left non-dominant side; F03.90 Unspecified dementia, unspecified severity, without behavioral disturbance, psychotic disturbance, mood disturbance, and anxiety; J44.9 Chronic obstructive pulmonary disease, unspecified; I13.0 Hypertensive heart and chronic kidney disease with heart failure and stage 1 through stage 4 chronic kidney disease, or unspecified chronic kidney disease; E11.22 Type 2 diabetes mellitus with diabetic chronic kidney disease; N18.9 Chronic kidney disease, unspecified; F32.9 Major depressive disorder, single episode, unspecified; Z85.89 Personal history of malignant neoplasm of other organs and systems; Z95.5 Presence of coronary angioplasty implant and graft; Z79.899 Other long term (current) drug therapy; Z79.4 Long term (current) use of insulin
CPT/HCPCS: 36415; 71045; 80053; 83605; 83880; 85025; 85610; 85730; 93005; 94640; 94760; J3490; J7620

== ENCOUNTER 2018-09-08 00:44 | Emergency (ER) | payer MEDICARE ==
[2018-09-08] MEDS: ACETAMINOPHEN 500 MG TAB PO ONE ×2 (01:31→02:16)
--- NOTE | 2018-09-08 01:37 | RAD ---
EXAM DESCRIPTION: Chest,1 View CLINICAL HISTORY: 73 years Male, shortness of breath COMPARISON: Chest x-ray July 19, 2018 FINDINGS: No consolidation. No pneumothorax. No significant pleural effusion. Mild pulmonary vascular congestion is demonstrated. There are a few streaky opacities in the right mid and lower lung zones suggestive of atelectasis. Cardiac silhouette appears mildly enlarged. Osseous structures are unremarkable. IMPRESSION: 1. Mild pulmonary vascular congestion. 2. Mild right basilar atelectasis. Electronically signed by: Rey Zhong MD 09/08/2018 1:34 AM CDT
[2018-09-08] MEDS ORDERED: diltiaZEM DRIP 125 MG in SODIUM CHLORIDE 0.9% 100ML 100 ML IVPB ONE (01:44)
[2018-09-08] MEDS ORDERED: SODIUM CHLORIDE 0.9% 100ML 100 ML IVPB ONE (01:50)
[2018-09-08] MEDS ORDERED: diltiaZEM DRIP 125 MG/25 ML VIAL IVPB ONE (01:50)
--- NOTE | 2018-09-08 01:55 | ED.PDOC ---
History of Present Illness - General Chief Complaint: Respiratory Problem Stated Complaint: short of breath, fever Time Seen by Provider: 09/08/18 01:40 Source: RN notes reviewed, Vital Signs reviewed Exam Limitations: clinical condition Additional Information: 73 YEAR OLD WHITE MALE RESIDENT OF [facility] BROUGHT HERE FOR EVALUATION OF BREATHING DIFFICULTY ONSET TODAY FROM [place] STAFF PT HAS KNOWN HISTORY OF CAD CHRONIC ATRIAL FIBRILLATION TYPE II DM CHF CHRONIC RENAL DISEASE HYPERTENSION PHYSICAL EXAM HE IS A OBESE MALE WHO IS TACHYPNIC TACHYCARDIC AND DECREASED LEVEL OF MENTAL STATUS BUT RESPONDS TO VERBAL STIMULI ABDOMINO- THORASIC BREATHING NOTED HIS SPO2 IN THE 90S AT 3 L OXYGEN DELIVERED BY [facility] CANNULA NO PERIPHERAL EDEMA NOTED - History of Present Illness Timing/Duration: unsure Severity: moderate Improving Factors: nothing Worsening Factors: nothing Associated Symptoms: shortness of breath, weakness Allergies/Adverse Reactions: Allergies NO KNOWN ALLERGY Allergy (Verified 12/17/17 22:34) Home Medications: Ambulatory Orders Bupropion HCl [Bupropion HCl Sr] 150 mg PO DAILY 01/11/16 Citalopram Hydrobromide 40 mg PO DAILY 01/11/16 Felodipine [Felodipine ER] 10 mg PO DAILY 01/11/16 Furosemide [Lasix] 20 mg PO DAILY 01/11/16 Gemfibrozil 600 mg PO DAILY 01/11/16 Glyburide-Metformin [Glucovance 5-500 mg] 1 tab PO BID 01/11/16 HYDROcodone 10MG/APAP 325MG [[place] ] 1 ea PO PRN 01/11/16 Ibuprofen 200 mg PO DAILY 01/11/16 Insulin Glargine [Toujeo Solostar] 30 unit SC BEDTIME 01/11/16 Lisinopril 40 mg PO DAILY 01/11/16 Lovastatin 20 mg PO DAILY 01/11/16 Metoprolol Tartrate 50 mg PO DAILY 01/11/16 Multiple Vitamins W/ Minerals [Multivitamin Men] 1 tab PO DAILY 01/11/16 Naproxen Sodium-Diphenhydramin [Aleve Pm 220-25 mg] 1 tab PO BEDTIME 01/11/16 Zolpidem Tartrate [Ambien] 10 mg PO DAILY 01/11/16 Review of Systems - Review of Systems Constitutional: States: no symptoms reported EENTM: States: no symptoms reported Respiratory: States: see HPI Cardiology: States: see HPI Gastrointestinal/Abdominal: States: no symptoms reported Genitourinary: States: no symptoms reported Musculoskeletal: States: no symptoms reported Skin: States: no symptoms reported Neurological: States: no symptoms reported Endocrine: States: no symptoms reported Hematologic/Lymphatic: States: no symptoms reported Past Medical History (General) - Patient Medical History Hx Seizures: No Hx Stroke: Yes Hx Dementia: Yes Hx Asthma: No Hx of COPD: Yes Hx Cardiac Disorders: Yes - hx stent placed Hx Congestive Heart Failure: Yes Hx Pacemaker: No Hx Hypertension: Yes Hx Thyroid Disease: No Hx Diabetes: Yes Hx Gastroesophageal Reflux: No Hx Renal Disease: Yes Hx Cancer: Yes - Rt foot tumor Hx of HIV: No Hx Hepatitis C: No Hx MRSA: Yes MRSA Source:: Wound Surgical History: other - Vaccination History Hx Tetanus, Diphtheria Vaccination: Yes Hx Influenza Vaccination: Yes Hx Pneumococcal Vaccination: Yes - Social History Hx Tobacco Use: No Hx Chewing Tobacco Use: No Hx Alcohol Use: No Hx Substance Use: No Hx Substance Use Treatment: No Hx Depression: Yes Hx Physical Abuse: No Hx Emotional Abuse: No Hx Suspected Abuse: No - Activities of Daily Living Prison/Assisted Living (if applicable):: [facility] - Female History Patient : No Family Medical History - Family History Father Family History: Unknown Hx Cardiac Disease: Yes Hx Family Cancer: Yes - dad Hx Family;Other: Alzheimers Dementia -mom Physical Exam - Physical Exam General Appearance: Other - MILD TO MODERATE RESPIRATORY DISTRESS Eye Exam: bilateral normal Ears, Nose, Throat: hearing grossly normal, normal ENT inspection, normal pharynx Neck: non-tender, full range of motion, supple Respiratory: chest non-tender, lungs clear, normal breath sounds, rales Cardiovascular/Chest: normal peripheral pulses, no JVD, no murmur, tachycardia Gastrointestinal/Abdominal: normal bowel sounds, non tender, soft, no pulsatile mass Back Exam: normal inspection, no CVA tenderness 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: 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 nml as tested, no motor/sensory deficits, alert, normal mood/affect, oriented x 3 Lymphatic: no adenopathy Progress - Results/Orders Results/Orders: Laboratory Tests 09/08/18 09/08/18 09/08/18 00:53 00:53 00:54 WBC 11.1 H RBC 4.34 L Hgb 11.7 L Hct 37.1 L MCV 85.4 MCH 27.0 MCHC 31.7 L RDW 16.2 H Plt Count 245 MPV 8.9 Absolute Neuts (auto) 8.80 H Absolute Lymphs (auto) 1.50 Absolute Monos (auto) 0.60 Absolute Eos (auto) 0.20 Absolute Basos (auto) 0.10 Neutrophils % 79.1 H Lymphocytes % 13.0 L Monocytes % 5.3 Eosinophils % 1.5 Basophils % 1.1 Sodium 137 Potassium 3.7 Chloride 105 Carbon Dioxide 22 Anion Gap 13.7 BUN 25 H Creatinine 2.49 H BUN/Creatinine Ratio 10.0 Random Glucose 177 H Serum Osmolality 282.6 Lactic Acid 1.0 Calcium 8.8 Total Bilirubin 1.0 AST 17 ALT 13 Alkaline Phosphatase 58 Creatine Kinase CK-MB (CK-2) CK-MB (CK-2) % Troponin I B-Natriuretic Peptide 811.0 H* Serum Total Protein 6.6 Albumin 3.3 Globulin 3.3 Albumin/Globulin Ratio 1.0 L 09/08/18 00:55 WBC RBC Hgb Hct MCV MCH MCHC RDW Plt Count MPV Absolute Neuts (auto) Absolute Lymphs (auto) Absolute Monos (auto) Absolute Eos (auto) Absolute Basos (auto) Neutrophils % Lymphocytes % Monocytes % Eosinophils % Basophils % Sodium Potassium Chloride Carbon Dioxide Anion Gap BUN Creatinine BUN/Creatinine Ratio Random Glucose Serum Osmolality Lactic Acid Calcium Total Bilirubin AST ALT Alkaline Phosphatase Creatine Kinase 70 CK-MB (CK-2) 1.7 CK-MB (CK-2) % Not Reportable Troponin I 0.03 B-Natriuretic Peptide Serum Total Protein Albumin Globulin Albumin/Globulin Ratio - EKG/XRAY/CT EKG: Atrial, Fibrillation, RVR Departure - Departure Clinical Impression: CKD (chronic kidney disease) stage 3, GFR 30-59 ml/min, CHF, acute on chronic, Morbid obesity with BMI of 50.0-59.9, adult, Diabetes 1.5, managed as type 1 Time of Disposition: 02:00 Disposition: Transfer to Hospital Condition: Fair Departure Forms: ED Discharge - Pt. Copy, Patient Portal Self Enrollment Referrals: JAYY SIMPSON [Primary Care Provider] - 1-2 Weeks Home Medications: Ambulatory Orders Bupropion HCl [Bupropion HCl Sr] 150 mg PO DAILY 01/11/16 Citalopram Hydrobromide 40 mg PO DAILY 01/11/16 Felodipine [Felodipine ER] 10 mg PO DAILY 01/11/16 Furosemide [Lasix] 20 mg PO DAILY 01/11/16 Gemfibrozil 600 mg PO DAILY 01/11/16 Glyburide-Metformin [Glucovance 5-500 mg] 1 tab PO BID 01/11/16 HYDROcodone 10MG/APAP 325MG [[place] ] 1 ea PO PRN 01/11/16 Ibuprofen 200 mg PO DAILY 01/11/16 Insulin Glargine [Toujeo Solostar] 30 unit SC BEDTIME 01/11/16 Lisinopril 40 mg PO DAILY 01/11/16 Lovastatin 20 mg PO DAILY 01/11/16 Metoprolol Tartrate 50 mg PO DAILY 01/11/16 Multiple Vitamins W/ Minerals [Multivitamin Men] 1 tab PO DAILY 01/11/16 Naproxen Sodium-Diphenhydramin [Aleve Pm 220-25 mg] 1 tab PO BEDTIME 01/11/16 Zolpidem Tartrate [Ambien] 10 mg PO DAILY 01/11/16 Comments: PT WILL BE TRANSFERED TO [facility] FOR FURTHER MANAGEMENT Transfer to Outside Facility - Transfer Information Accepting Provider:: DR Jacque JAIMES Accepting Facility: [facility] Reason for Transfer: required specialist not available - CHF ATRIAL FIB WITH RVR TYPE II DM CHRONIC RENAL DYSFUNCTION
[2018-09-08] MEDS ORDERED: FUROSEMIDE INJ 40 MG/4 ML VIAL IV ONE (01:59)
[2018-09-08 02:31] VITALS: TEMP 99.5
[2018-09-08 03:20] VITALS: O2SAT 99
[2018-09-08 03:44] VITALS: BP 119/69
== END 2018-09-08 04:05 | disposition short-term general hospital (02) ==
LOC: ER 00:44
DX: I50.9 Heart failure, unspecified (principal); N18.3 Chronic kidney disease, stage 3 (moderate); I48.91 Unspecified atrial fibrillation; R00.0 Tachycardia, unspecified; E10.22 Type 1 diabetes mellitus with diabetic chronic kidney disease; I13.0 Hypertensive heart and chronic kidney disease with heart failure and stage 1 through stage 4 chronic kidney disease, or unspecified chronic kidney disease; E66.01 Morbid (severe) obesity due to excess calories; F32.9 Major depressive disorder, single episode, unspecified; J44.9 Chronic obstructive pulmonary disease, unspecified; F03.90 Unspecified dementia, unspecified severity, without behavioral disturbance, psychotic disturbance, mood disturbance, and anxiety; Z68.43 Body mass index [BMI] 50.0-59.9, adult; Z85.89 Personal history of malignant neoplasm of other organs and systems; Z95.5 Presence of coronary angioplasty implant and graft; Z86.73 Personal history of transient ischemic attack (TIA), and cerebral infarction without residual deficits; Z79.4 Long term (current) use of insulin; Z79.899 Other long term (current) drug therapy
CPT/HCPCS: 36415; 71045; 80053; 81001; 82550; 82553; 83605; 83880; 84484; 85025; 87040; 93005; 94660; 94760; J1940; J7050

== ENCOUNTER 2018-10-21 22:47 | Emergency (ER) | payer MEDICARE ==
[2018-10-21] MEDS ORDERED: fentaNYL CITRATE INJ 50 MCG/ML AMP IV ONE (23:45)
--- NOTE | 2018-10-22 00:46 | ED.PDOC ---
History of Present Illness - General Chief Complaint: Neuro Symptoms/Deficits Stated Complaint: altered mental status all day, hypoxic Time Seen by Provider: 10/21/18 23:13 Source: EMS Exam Limitations: clinical condition - lethargic - History of Present Illness Initial Comments: Kim Bee 73 y/o male [place] resident at [facility] brought to ER by EMS after he was found to be lethargic with low Sa02-80 %.He is supposed to be on Bipap machine and had been pulling it out and had torn out the tubes. Timing/Duration: 4-6 hours Severity: moderate Improving Factors: nothing Worsening Factors: nothing Allergies/Adverse Reactions: Allergies NO KNOWN ALLERGY Allergy (Verified 12/17/17 22:34) Home Medications: Ambulatory Orders Bupropion HCl [Bupropion HCl Sr] 150 mg PO DAILY 01/11/16 Citalopram Hydrobromide 40 mg PO DAILY 01/11/16 Felodipine [Felodipine ER] 10 mg PO DAILY 01/11/16 Furosemide [Lasix] 20 mg PO DAILY 01/11/16 Gemfibrozil 600 mg PO DAILY 01/11/16 Glyburide-Metformin [Glucovance 5-500 mg] 1 tab PO BID 01/11/16 HYDROcodone 10MG/APAP 325MG [Dennison [id number]] 1 ea PO PRN 01/11/16 Ibuprofen 200 mg PO DAILY 01/11/16 Insulin Glargine [Toujeo Solostar] 30 unit SC BEDTIME 01/11/16 Lisinopril 40 mg PO DAILY 01/11/16 Lovastatin 20 mg PO DAILY 01/11/16 Metoprolol Tartrate 50 mg PO DAILY 01/11/16 Multiple Vitamins W/ Minerals [Multivitamin Men] 1 tab PO DAILY 01/11/16 Naproxen Sodium-Diphenhydramin [Aleve Pm 220-25 mg] 1 tab PO BEDTIME 01/11/16 Zolpidem Tartrate [Ambien] 10 mg PO DAILY 01/11/16 Review of Systems - Review of Systems Respiratory: States: see HPI, other - low Sa02 Neurological: States: see HPI, other - lethargy Unable to Obtain Due To: condition - lethargic Past Medical History (General) - Patient Medical History Hx Seizures: No Hx Stroke: Yes Hx Dementia: Yes Hx Asthma: No Hx of COPD: Yes Hx Cardiac Disorders: Yes - hx stent placed Hx Congestive Heart Failure: Yes Hx Pacemaker: No Hx Hypertension: Yes Hx Thyroid Disease: No Hx Diabetes: Yes Hx Gastroesophageal Reflux: No Hx Renal Disease: Yes Hx Cancer: Yes - Rt foot tumor Hx of HIV: No Hx Hepatitis C: No Hx MRSA: Yes MRSA Source:: Wound Surgical History: other - cardiac stent;right foot - Vaccination History Hx Tetanus, Diphtheria Vaccination: Yes Hx Influenza Vaccination: Yes Hx Pneumococcal Vaccination: Yes Immunizations Up to Date: Yes - Social History Hx Tobacco Use: No Hx Chewing Tobacco Use: No Hx Alcohol Use: No Hx Substance Use: No Hx Substance Use Treatment: No Hx Depression: Yes Hx Physical Abuse: No Hx Emotional Abuse: No Hx Suspected Abuse: No - Activities of Daily Living Skilled Nursing/Assisted Living (if applicable):: [facility] - Female History Patient : No - Triage Comment ED Triage Comment: Ems gave xopenex updraft for decreased saturations, stated sats increased to 100% and pt became more oriented with oxygen, EMS stated also pt pulled oxygen off all day due o confusion Family Medical History - Family History Father Family History: Unknown Hx Cardiac Disease: Yes Hx Family Cancer: Yes - dad Hx Family;Other: Alzheimers Dementia -mom Physical Exam - Physical Exam General Appearance: No apparent distress, Other - somnolent Eye Exam: bilateral normal - eyegrounds Ears, Nose, Throat: hearing grossly normal - opens eyes with voice, normal ENT inspection, normal pharynx Neck: supple, normal inspection Respiratory: chest non-tender, no respiratory distress, decreased breath sounds - bases Cardiovascular/Chest: regular rate, rhythm, no gallop, no murmur Peripheral Pulses: radial,right: 2+, radial,left: 2+ Gastrointestinal/Abdominal: non tender, soft, other - obese;very thick panniculus ,dangling skin folds;erythema scrotum with edema Back Exam: no CVA tenderness, no vertebral tenderness Extremity: pedal edema - 2 + bilaterally Neurologic: other - lethargic but opens eyes to voice Skin Exam: normal color, warm/dry, other - no pressure sore noted Progress - Progress Progress: 10/22/18 03:36 Vital Signs - 24 hr 10/21/18 10/21/18 10/21/18 23:09 23:18 23:55 Temperature 97.1 F L Pulse Rate [ 107 H 90 apical] Respiratory 32 H 26 H 18 Rate Blood Pressure 145/89 [Right Arm] O2 Sat by Pulse 92 L Oximetry 10/22/18 10/22/18 10/22/18 00:30 01:00 01:30 Temperature Pulse Rate [ 80 86 78 apical] Respiratory 19 20 19 Rate Blood Pressure 113/65 123/73 144/86 [Right Arm] O2 Sat by Pulse 99 99 100 Oximetry 10/22/18 10/22/18 10/22/18 01:45 02:01 03:14 Temperature Pulse Rate [ 80 76 apical] Respiratory 18 20 22 Rate Blood Pressure 159/96 178/130 [Right Arm] O2 Sat by Pulse 99 99 Oximetry 10/22/18 03:25 Temperature Pulse Rate [ 79 apical] Respiratory Rate Blood Pressure 166/109 [Right Arm] O2 Sat by Pulse 99 Oximetry - Results/Orders Results/Orders: Laboratory Results - last 24 hr 10/21/18 10/21/18 10/22/18 23:20 23:35 01:49 WBC 6.3 RBC 4.44 L Hgb 12.0 L Hct 37.0 L MCV 83.3 MCH 27.0 MCHC 32.4 L RDW 17.7 H Plt Count 238 MPV 9.3 Absolute Neuts (auto) 4.90 Absolute Lymphs (auto) 0.80 L Absolute Monos (auto) 0.40 Absolute Eos (auto) 0.20 Absolute Basos (auto) 0.00 Neutrophils % 78.1 H Lymphocytes % 12.3 L Monocytes % 6.5 Eosinophils % 2.4 Basophils % 0.7 PT 13.3 H INR 1.33 H PTT (SP) 31.6 pCO2 48 50 H pO2 52 L 130 H* HCO3 29.6 30.7 ABG pH 7.400 7.410 ABG O2 Saturation 87.1 L 99.7 H ABG Base Excess 4.6 5.7 ABG Deoxyhemoglobin 12.6 H 0.3 Oxyhemoglobin % 84.9 L 97.0 Carboxyhemoglobin % 0.7 0.1 L Methemoglobin % Sat 1.8 H 2.6 H Calc Total Hemoglobin 10.4 L 9.6 L Sodium 140 Potassium 4.1 Chloride 101 Carbon Dioxide 27 Anion Gap 16.1 BUN 34 H Creatinine 2.70 H BUN/Creatinine Ratio 12.6 Random Glucose 233 H Serum Osmolality 294.5 Calcium 9.0 Magnesium 2.0 Total Bilirubin 0.8 Direct Bilirubin 0.3 H Indirect Bilirubin 0.5 AST 21 ALT 12 Alkaline Phosphatase 72 Creatine Kinase 23 L CK-MB (CK-2) 1.2 CK-MB (CK-2) % Not Reportable Troponin I 0.03 Serum Total Protein 6.1 L Albumin 3.1 L Discuss all test result with daughter - EKG/XRAY/CT XRAY: chest - mild vascular congestion Departure - Departure Clinical Impression: Difficulty with BiPAP use, Morbid obesity with BMI of 50.0-59.9, adult, Sleep apnea with use of continuous positive airway pressure (CPAP), Hemiparesis due to old cerebrovascular accident Acute on chronic respiratory failure Qualifiers: Respiratory failure complication: hypoxia and hypercapnia Qualified Code(s): J96.21 - Acute and chronic respiratory failure with hypoxia; J96.22 - Acute and chronic respiratory failure with hypercapnia 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 Copy, Patient Portal Self Enrollment Referrals: JAYY SIMPSON [Primary Care Provider] - 1-2 Weeks Home Medications: Ambulatory Orders Bupropion HCl [Bupropion HCl Sr] 150 mg PO DAILY 01/11/16 Citalopram Hydrobromide 40 mg PO DAILY 01/11/16 Felodipine [Felodipine ER] 10 mg PO DAILY 01/11/16 Furosemide [Lasix] 20 mg PO DAILY 01/11/16 Gemfibrozil 600 mg PO DAILY 01/11/16 Glyburide-Metformin [Glucovance 5-500 mg] 1 tab PO BID 01/11/16 HYDROcodone 10MG/APAP 325MG [Dennison ] 1 ea PO PRN 01/11/16 Ibuprofen 200 mg PO DAILY 01/11/16 Insulin Glargine [Toujeo Solostar] 30 unit SC BEDTIME 01/11/16 Lisinopril 40 mg PO DAILY 01/11/16 Lovastatin 20 mg PO DAILY 01/11/16 Metoprolol Tartrate 50 mg PO DAILY 01/11/16 Multiple Vitamins W/ Minerals [Multivitamin Men] 1 tab PO DAILY 01/11/16 Naproxen Sodium-Diphenhydramin [Aleve Pm 220-25 mg] 1 tab PO BEDTIME 01/11/16 Zolpidem Tartrate [Ambien] 10 mg PO DAILY 01/11/16 Additional Instructions: Continue with all current medications;CPAP/BiPAP setting O2-32 %;EPAP-8;IPAP-18;RR-20;Return to emergency room as needed
--- NOTE | 2018-10-22 01:17 | RAD ---
EXAM DESCRIPTION: Chest,1 View CLINICAL HISTORY: 73 years Male, sob COMPARISON: Chest x-ray September 08, 2018 FINDINGS: No consolidation. No pneumothorax. No significant pleural effusion. Mild pulmonary vascular congestion is again noted. Cardiac silhouette appears moderately enlarged. Osseous structures are unremarkable. IMPRESSION: Mild pulmonary vascular congestion. Electronically signed by: Rey Zhong MD 10/22/2018 1:15 AM CDT
[2018-10-22 03:14] VITALS: O2SAT 99
[2018-10-22 04:18] VITALS: BP 146/100
[2018-10-22 04:32] VITALS: TEMP 98.7
== END 2018-10-22 04:31 ==
LOC: ER 22:47
DX: J96.22 Acute and chronic respiratory failure with hypercapnia (principal); J96.21 Acute and chronic respiratory failure with hypoxia; N18.9 Chronic kidney disease, unspecified; I50.40 Unspecified combined systolic (congestive) and diastolic (congestive) heart failure; E66.01 Morbid (severe) obesity due to excess calories; G47.30 Sleep apnea, unspecified; I69.359 Hemiplegia and hemiparesis following cerebral infarction affecting unspecified side; F03.90 Unspecified dementia, unspecified severity, without behavioral disturbance, psychotic disturbance, mood disturbance, and anxiety; J44.9 Chronic obstructive pulmonary disease, unspecified; I13.0 Hypertensive heart and chronic kidney disease with heart failure and stage 1 through stage 4 chronic kidney disease, or unspecified chronic kidney disease; E11.22 Type 2 diabetes mellitus with diabetic chronic kidney disease; F32.9 Major depressive disorder, single episode, unspecified; Z68.43 Body mass index [BMI] 50.0-59.9, adult; Z95.5 Presence of coronary angioplasty implant and graft; Z85.89 Personal history of malignant neoplasm of other organs and systems; Z79.899 Other long term (current) drug therapy

== ENCOUNTER 2018-10-28 17:19 | Inpatient (IN) | payer MEDICARE ==
[2018-10-28] MEDS ORDERED: cefTRIAXone SODIUM 1 GM in SODIUM CHL 0.9% 50ML MIN-BAG+ 50 ML IVPB ONE (17:28)
[2018-10-28] MEDS ORDERED: IBUPROFEN 200 MG TAB PO ONE (17:28)
[2018-10-28] MEDS ORDERED: IPRATROPIUM/ALBUTEROL 3 ML VIAL NEB ONE (17:38)
[2018-10-28] MEDS ORDERED: cefTRIAXone SODIUM 1 GM VIAL ONE (18:14)
[2018-10-28] MEDS ORDERED: SODIUM CHL 0.9% 50ML MIN-BAG+ 50 ML IVPB ONE (18:15)
[2018-10-28] MEDS ORDERED: levoFLOXacin 500MG IV 500 MG in PREMIX BAG 1 BAG IVPB ONE (19:12)
[2018-10-28] MEDS ORDERED: methylPREDNISolone SODIUM SUC 125 MG/2 ML VIAL IV ONE (19:13)
[2018-10-28] MEDS ORDERED: SODIUM CHLORIDE 0.9% 1000ML 500 ML IVS ONE (19:13)
[2018-10-28] MEDS ORDERED: levoFLOXacin 500MG IV 100 ML IVPB ONE (19:18)
[2018-10-28] MEDS: METOPROLOL TARTRATE 25 MG TAB PO ONE ×2 (19:21→21:02)
[2018-10-28] MEDS ORDERED: IPRATROPIUM/ALBUTEROL 3 ML VIAL INH PRN (23:34)
[2018-10-28] MEDS ORDERED: SODIUM CHLORIDE 0.9% (FLUSH) 10 ML SYG IV PRN (23:34)
[2018-10-28] MEDS ORDERED: cloNIDine HCL 0.1 MG TAB PO PRN (23:41)
[2018-10-28] MEDS ORDERED: DEXTROSE 50% 25 GM/50 ML SYG IV PRN (23:44)
[2018-10-28] MEDS ORDERED: GLUCAGON INJ 1 MG VIAL SUBCU PRN (23:44)
[2018-10-29] MEDS: BUDESONIDE NEBS 0.25 MG/2 ML INH INH SCH ×3 (00:15→22:30)
[2018-10-29] MEDS: IV SET AND CAP CHANGE INJ INJ SCH (00:18)
[2018-10-29] MEDS: PANTOPRAZOLE SODIUM TAB 40 MG PO SCH (06:12)
[2018-10-29] MEDS: INSULIN LISPRO 100 UNITS/ML PEN SUBCU SCH ×6 (07:12→21:08)
[2018-10-29] MEDS ORDERED: ARFORMOTEROL TARTRATE 15 MCG/2 ML NEB NEB SCH (08:00)
[2018-10-29] MEDS ORDERED: BUDESONIDE NEBS 0.5 MG/2 ML INH NEB ONE (08:05)
[2018-10-29] MEDS ORDERED: SODIUM CHL 0.9% 50ML MIN-BAG+ 50 ML IVPB ONE (08:17)
[2018-10-29] MEDS ORDERED: APIXABAN 2.5 MG TAB PO ONE (08:17)
[2018-10-29] MEDS ORDERED: LACTOBACILLUS 1 TAB ONE (08:18)
[2018-10-29] MEDS ORDERED: cefTRIAXone SODIUM 1 GM VIAL ONE (08:18)
[2018-10-29] MEDS: IPRATROPIUM/ALBUTEROL 3 ML VIAL INH SCH ×4 (08:37→20:50)
[2018-10-29] MEDS ORDERED: traMADol HCL 50 MG TAB PO PRN (09:35)
[2018-10-29] MEDS ORDERED: hydrOXYzine HCl 25 MG TAB PO PRN (09:35)
[2018-10-29] MEDS ORDERED: IPRATROPIUM/ALBUTEROL 3 ML VIAL NEB PRN (09:35)
[2018-10-29] MEDS ORDERED: NON-FORMULARY MEDICATION 1 EA MIS (Valsartan [Valsartan] 160 MG) PO SCH (09:45)
[2018-10-29] MEDS ORDERED: SODIUM BICARBONATE 650 MG TAB ONE (09:46)
[2018-10-29] MEDS ORDERED: LOSARTAN POTASSIUM 25 MG TAB ONE (09:46)
[2018-10-29] MEDS ORDERED: METOPROLOL SUCCINATE XL 50 MG TAB ONE (09:46)
[2018-10-29] MEDS ORDERED: VALSARTAN 80 MG TAB ONE (09:47)
[2018-10-29] MEDS: LACTOBACILLUS 1 TAB PO SCH ×3 (09:48→21:04)
[2018-10-29] MEDS: SODIUM BICARBONATE 650 MG TAB PO SCH (09:49)
[2018-10-29] MEDS: METOPROLOL SUCCINATE XL 50 MG TAB PO SCH (09:49)
[2018-10-29] MEDS: APIXABAN 2.5 MG TAB PO SCH ×2 (09:49→21:07)
[2018-10-29] MEDS: cefTRIAXone SODIUM 1 GM in SODIUM CHL 0.9% 50ML MIN-BAG+ 50 ML IVPB SCH (09:50)
[2018-10-29] MEDS: LOSARTAN POTASSIUM 25 MG TAB PO SCH (09:50)
[2018-10-29] MEDS: guaiFENesin 100 MG/5 ML 10 ML UD PO SCH ×3 (09:50→21:04)
[2018-10-29] MEDS: FUROSEMIDE INJ 40 MG/4 ML VIAL IV SCH ×2 (09:51→16:52)
[2018-10-29] MEDS: SODIUM CHLORIDE 0.9% (FLUSH) 10 ML SYG IV SCH ×2 (09:51→21:08)
[2018-10-29] MEDS: QUEtiapine FUMARATE 25 MG TAB PO SCH (21:04)
[2018-10-29] MEDS: DONEPEZIL HCL 5 MG TAB PO SCH (21:04)
[2018-10-29] MEDS: DIVALPROEX SODIUM ER 250 MG TAB PO SCH (21:04)
[2018-10-29] MEDS: CITALOPRAM HBR 20 MG TAB PO SCH (21:07)
[2018-10-29] MEDS: ATORVASTATIN 20 MG TAB PO SCH (21:08)
[2018-10-29] MEDS: INSULIN DETEMIR 100 UNITS/ML PEN SUBCU SCH (21:08)
[2018-10-30] MEDS: PANTOPRAZOLE SODIUM TAB 40 MG PO SCH (06:03)
[2018-10-30] MEDS: IPRATROPIUM/ALBUTEROL 3 ML VIAL INH SCH ×4 (07:26→20:20)
[2018-10-30] MEDS: BUDESONIDE NEBS 0.25 MG/2 ML INH INH SCH ×2 (07:35→20:20)
[2018-10-30] MEDS: INSULIN LISPRO 100 UNITS/ML PEN SUBCU SCH ×7 (08:07→21:04)
[2018-10-30] MEDS ORDERED: SODIUM CHL 0.9% 50ML MIN-BAG+ 50 ML IVPB ONE (08:46)
[2018-10-30] MEDS ORDERED: cefTRIAXone SODIUM 1 GM VIAL ONE (08:47)
[2018-10-30] MEDS: LOSARTAN POTASSIUM 25 MG TAB PO SCH (09:18)
[2018-10-30] MEDS: SODIUM BICARBONATE 650 MG TAB PO SCH (09:19)
[2018-10-30] MEDS: METOPROLOL SUCCINATE XL 50 MG TAB PO SCH (09:19)
[2018-10-30] MEDS: APIXABAN 2.5 MG TAB PO SCH ×2 (09:19→20:17)
[2018-10-30] MEDS: cefTRIAXone SODIUM 1 GM in SODIUM CHL 0.9% 50ML MIN-BAG+ 50 ML IVPB SCH (09:27)
[2018-10-30] MEDS: LACTOBACILLUS 1 TAB PO SCH ×3 (09:29→20:18)
[2018-10-30] MEDS: SODIUM CHLORIDE 0.9% (FLUSH) 10 ML SYG IV SCH ×2 (09:29→20:18)
[2018-10-30] MEDS: guaiFENesin 100 MG/5 ML 10 ML UD PO SCH ×3 (09:29→20:18)
[2018-10-30] MEDS: DONEPEZIL HCL 5 MG TAB PO SCH (20:17)
[2018-10-30] MEDS: QUEtiapine FUMARATE 25 MG TAB PO SCH (20:17)
[2018-10-30] MEDS: ATORVASTATIN 20 MG TAB PO SCH (20:18)
[2018-10-30] MEDS: DIVALPROEX SODIUM ER 250 MG TAB PO SCH (20:18)
[2018-10-30] MEDS: CITALOPRAM HBR 20 MG TAB PO SCH (20:18)
[2018-10-30] MEDS: INSULIN DETEMIR 100 UNITS/ML PEN SUBCU SCH (21:04)
[2018-10-31] MEDS: PANTOPRAZOLE SODIUM TAB 40 MG PO SCH (06:09)
[2018-10-31] MEDS: INSULIN LISPRO 100 UNITS/ML PEN SUBCU SCH ×7 (07:09→20:50)
[2018-10-31] MEDS: BUDESONIDE NEBS 0.25 MG/2 ML INH INH SCH ×2 (07:39→19:42)
[2018-10-31] MEDS: IPRATROPIUM/ALBUTEROL 3 ML VIAL INH SCH ×4 (07:39→19:42)
[2018-10-31] MEDS ORDERED: SODIUM CHL 0.9% 50ML MIN-BAG+ 50 ML IVPB ONE (08:04)
[2018-10-31] MEDS ORDERED: cefTRIAXone SODIUM 1 GM VIAL ONE (08:05)
[2018-10-31] MEDS: guaiFENesin 100 MG/5 ML 10 ML UD PO SCH ×3 (08:24→20:45)
[2018-10-31] MEDS: cefTRIAXone SODIUM 1 GM in SODIUM CHL 0.9% 50ML MIN-BAG+ 50 ML IVPB SCH (08:25)
[2018-10-31] MEDS: LOSARTAN POTASSIUM 25 MG TAB PO SCH (08:25)
[2018-10-31] MEDS: METOPROLOL SUCCINATE XL 50 MG TAB PO SCH (08:25)
[2018-10-31] MEDS: APIXABAN 2.5 MG TAB PO SCH ×2 (08:25→20:44)
[2018-10-31] MEDS: SODIUM BICARBONATE 650 MG TAB PO SCH (08:26)
[2018-10-31] MEDS: SODIUM CHLORIDE 0.9% (FLUSH) 10 ML SYG IV SCH ×2 (08:26→20:47)
[2018-10-31] MEDS: LACTOBACILLUS 1 TAB PO SCH ×3 (08:27→20:45)
[2018-10-31] MEDS: DIVALPROEX SODIUM ER 250 MG TAB PO SCH (20:45)
[2018-10-31] MEDS: QUEtiapine FUMARATE 25 MG TAB PO SCH (20:45)
[2018-10-31] MEDS: ATORVASTATIN 20 MG TAB PO SCH (20:45)
[2018-10-31] MEDS: DONEPEZIL HCL 5 MG TAB PO SCH (20:45)
[2018-10-31] MEDS: CITALOPRAM HBR 20 MG TAB PO SCH (20:45)
[2018-10-31] MEDS: INSULIN DETEMIR 100 UNITS/ML PEN SUBCU SCH (20:46)
[2018-10-31] MEDS: IV SET AND CAP CHANGE INJ INJ SCH (23:45)
[2018-11-01] MEDS: PANTOPRAZOLE SODIUM TAB 40 MG PO SCH (06:27)
[2018-11-01] MEDS: BUDESONIDE NEBS 0.25 MG/2 ML INH INH SCH (07:36)
[2018-11-01] MEDS: IPRATROPIUM/ALBUTEROL 3 ML VIAL INH SCH ×3 (07:36→16:33)
[2018-11-01] MEDS: INSULIN LISPRO 100 UNITS/ML PEN SUBCU SCH ×6 (07:38→16:48)
[2018-11-01] MEDS ORDERED: SODIUM CHL 0.9% 50ML MIN-BAG+ 50 ML IVPB ONE (08:00)
[2018-11-01] MEDS ORDERED: cefTRIAXone SODIUM 1 GM VIAL ONE (08:00)
[2018-11-01] MEDS: guaiFENesin 100 MG/5 ML 10 ML UD PO SCH ×2 (09:03→15:15)
[2018-11-01] MEDS: cefTRIAXone SODIUM 1 GM in SODIUM CHL 0.9% 50ML MIN-BAG+ 50 ML IVPB SCH (09:03)
[2018-11-01] MEDS: LOSARTAN POTASSIUM 25 MG TAB PO SCH (09:03)
[2018-11-01] MEDS: SODIUM BICARBONATE 650 MG TAB PO SCH (09:03)
[2018-11-01] MEDS: METOPROLOL SUCCINATE XL 50 MG TAB PO SCH (09:03)
[2018-11-01] MEDS: LACTOBACILLUS 1 TAB PO SCH ×2 (09:04→15:15)
[2018-11-01] MEDS: APIXABAN 2.5 MG TAB PO SCH (09:04)
[2018-11-01] MEDS: SODIUM CHLORIDE 0.9% (FLUSH) 10 ML SYG IV SCH (09:04)
[2018-11-01 10:59] VITALS: BP 125/65
[2018-11-01 14:03] VITALS: TEMP 98.7
[2018-11-01 16:35] VITALS: O2SAT 98
== END 2018-11-01 18:29 | DRG 872 ==
LOC: ER 17:19 → MS 22:27
PROVIDERS: ADMIT Nurse Practitioner Acute Care; ATTEND Nurse Practitioner Family
DX: A41.89 Other specified sepsis (principal); N39.0 Urinary tract infection, site not specified; I13.0 Hypertensive heart and chronic kidney disease with heart failure and stage 1 through stage 4 chronic kidney disease, or unspecified chronic kidney disease; I69.354 Hemiplegia and hemiparesis following cerebral infarction affecting left non-dominant side; Z68.41 Body mass index [BMI] 40.0-44.9, adult; I50.9 Heart failure, unspecified; I48.91 Unspecified atrial fibrillation; F03.90 Unspecified dementia, unspecified severity, without behavioral disturbance, psychotic disturbance, mood disturbance, and anxiety; D64.9 Anemia, unspecified; E11.22 Type 2 diabetes mellitus with diabetic chronic kidney disease; N18.9 Chronic kidney disease, unspecified; I25.10 Atherosclerotic heart disease of native coronary artery without angina pectoris; J44.9 Chronic obstructive pulmonary disease, unspecified; G47.33 Obstructive sleep apnea (adult) (pediatric); G89.29 Other chronic pain; M54.5 Low back pain; K43.9 Ventral hernia without obstruction or gangrene; E66.01 Morbid (severe) obesity due to excess calories; Z66 Do not resuscitate; Z87.891 Personal history of nicotine dependence; Z79.1 Long term (current) use of non-steroidal anti-inflammatories (NSAID); Z79.4 Long term (current) use of insulin; Z79.891 Long term (current) use of opiate analgesic; Z79.899 Other long term (current) drug therapy

== ENCOUNTER 2019-06-25 20:07 | Emergency (ER) | payer MEDICARE, OTHER ==
--- NOTE | 2019-06-25 20:43 | CT ---
EXAM DESCRIPTION: Head CLINICAL HISTORY: 74 years Male Possible Stroke COMPARISON: December 17, 2017. TECHNIQUE: Images were obtained in axial, sagittal, and coronal planes. Moderate motion artifact. Additional associated beam hardening artifact. This exam was performed according to our departmental dose-optimization program which includes use of Automated Exposure Control, adjustment of the mA and/or kV according to patient size and/or use of iterative reconstruction technique. FINDINGS: Ventricular system is enlarged. Marked prominence of the cortical sulci. Artifact with increased attenuation anterior right frontal lobe. Blood products in this region would be difficult to entirely exclude. No abnormal areas of increased attenuation otherwise seen. No evidence for skull fracture. Symmetric aeration mastoid air cells bilaterally. Mild mucosal thickening paranasal sinuses. IMPRESSION: Artifact anterior right frontal region. Blood products difficult to exclude in this region. Repeat or follow-up imaging with decreased motion artifact would be suggested. Otherwise no acute intracranial abnormality. No evidence for hemorrhage, mass lesion, or large acute infarction. Electronically signed by: Marya Jacinto MD 06/25/2019 8:41 PM CDT
[2019-06-25] MEDS: SODIUM CHLORIDE 0.9% (FLUSH) 10 ML SYG IV PRN (20:57)
--- NOTE | 2019-06-25 21:18 | ED.PDOC ---
History of Present Illness - General Chief Complaint: Neuro Symptoms/Deficits Stated Complaint: possible stroke Time Seen by Provider: 06/25/19 20:13 Source: patient, family, shelter records Exam Limitations: other - BASELINE DEMENTIA AND PREVIOUS STROKE - History of Present Illness Initial Comments: [facility] WHEELCHAIR BOUND AND LIFT DEVICE FOR TRANSFERS AT [place]. H/O STROKE. TODAY AT 19:20, [place] NOTICED PT CLENCHING L TEETH AND L FACIAL DROOPING. NEW LUE WEAKNESS. (AT [place], PT ABLE TO USE BUE TO FEED HIMSELF.) H/O DM, DEMENTIA. Timing/Duration: 1-3 hours Severity: severe Improving Factors: nothing Worsening Factors: nothing Associated Symptoms: denies symptoms Allergies/Adverse Reactions: Allergies NO KNOWN ALLERGY Allergy (Verified 12/17/17 22:34) Home Medications: Ambulatory Orders Bupropion HCl [Bupropion Hydrochloride E] 150 mg PO DAILY 01/11/16 Citalopram Hydrobromide 20 mg PO BEDTIME 01/11/16 Furosemide [Lasix] 40 mg PO BID 01/11/16 Multiple Vitamins W/ Minerals [Multivitamin Men] 1 tab PO DAILY 01/11/16 Albuterol Sulfate Nebs [Proventil Nebs] 2.5 mg INH Q6H PRN 10/28/18 Apixaban [Eliquis] 5 mg PO BID 10/28/18 Arformoterol Tartrate Nebs [Brovana Nebs] 15 mcg NEB RTBID 10/28/18 Bisacodyl [Dulcolax] 10 mg PO DAILY PRN 10/28/18 Budesonide (Inhalation) [Budesonide] 0.25 mg IN Q12H 10/28/18 Clonidine HCl 0.1 mg PO Q8H PRN 10/28/18 Divalproex Sodium [Divalproex Sodium ER] 250 mg PO BEDTIME 10/28/18 Donepezil HCl [Aricept] 5 mg PO BEDTIME 10/28/18 Guaifenesin 200 mg PO TID 10/28/18 Insulin Lispro [Humalog Kwikpen] 5 unit SC AC 10/28/18 Insulin Lispro [Humalog Kwikpen] See Protocol SC ACHS 10/28/18 Lactobacillus [Acidophilus Lactobacilli] 1 cap PO TID 10/28/18 Acetaminophen [Tylenol] 650 mg PO Q8HR PRN 10/29/18 Atorvastatin Calcium [Lipitor] 20 mg PO DAILY 10/29/18 Hydroxyzine HCl 25 mg PO Q6HR PRN 10/29/18 Insulin Detemir [Levemir Pen] 20 units SUBCU BEDTIME 10/29/18 Ipratropium/Albuterol [Duoneb] 3 ml NEB Q6HR PRN 10/29/18 Losartan Potassium 50 mg PO DAILY 10/29/18 Metoprolol Succinate [Metoprolol Succinate ER] 50 mg PO DAILY 10/29/18 Potassium Chloride [Potassium Chloride ER] 20 meq PO BID 10/29/18 Quetiapine Fumarate [Seroquel] 75 mg PO BEDTIME 10/29/18 Sodium Bicarbonate Tab 650 mg PO DAILY 10/29/18 Tramadol HCl 50 mg PO Q6HR PRN 10/29/18 Valsartan 160 mg PO DAILY 10/29/18 Amoxicillin & Pot Clavulanate [Augmentin Tab] 875 mg PO BID 10 Days #20 tab 11/01/18 Review of Systems - Review of Systems Constitutional: States: no symptoms reported EENTM: States: no symptoms reported Respiratory: States: no symptoms reported Cardiology: States: no symptoms reported Gastrointestinal/Abdominal: States: no symptoms reported Genitourinary: States: no symptoms reported Musculoskeletal: States: no symptoms reported Skin: States: no symptoms reported Neurological: States: no symptoms reported Endocrine: States: no symptoms reported Hematologic/Lymphatic: States: no symptoms reported Unable to Obtain Due To: dementia - ROS LIMITED BY MODERATE DEMENTIA. All other Systems: Reviewed and Negative Past Medical History (General) - Patient Medical History Hx Seizures: No Hx Stroke: Yes Hx Dementia: No Hx Asthma: No Hx of COPD: Yes Hx Cardiac Disorders: Yes - hx stent placed Hx Congestive Heart Failure: Yes Hx Pacemaker: No Hx Hypertension: Yes Hx Thyroid Disease: No Hx Diabetes: Yes Hx Gastroesophageal Reflux: No Hx Renal Disease: Yes Hx Cancer: No Hx of HIV: No Hx Hepatitis C: No Hx MRSA: Yes MRSA Source:: Wound Surgical History: other - Vaccination History Hx Tetanus, Diphtheria Vaccination: Yes Hx Influenza Vaccination: Yes Hx Pneumococcal Vaccination: Yes Immunizations Up to Date: Yes - Social History Hx Tobacco Use: No Hx Chewing Tobacco Use: No Hx Alcohol Use: No Hx Substance Use: No Hx Substance Use Treatment: No Hx Depression: Yes Feels Threatened In Home Enviroment: No Feels Threatened In a Relationship: No Hx Physical Abuse: No Hx Emotional Abuse: No Hx Suspected Abuse: No - Activities of Daily Living Retirement/Assisted Living (if applicable):: [facility] Agency (if applicable):: None - Female History Patient is a Female of Child Bearing Age (10 -59 yrs old): No Patient : No Family Medical History - Family History Father Family History: Unknown Hx Cardiac Disease: Yes Hx Family Cancer: Yes - dad Hx Family;Other: Alzheimers Dementia -mom Physical Exam - Physical Exam General Appearance: Alert, Obese Eye Exam: bilateral abnormal EOM - PERRLA BUT PT DOES NOT FOLLOW LIGHT WITH HIS EYES. ENT Exam: normal ENT inspection, TMs normal, pharynx normal Neck: non-tender, full range of motion, supple Respiratory: lungs clear, normal breath sounds, no respiratory distress Cardiovascular/Chest: normal peripheral pulses, no JVD, irregularly irregular Peripheral Pulses: radial,right: 1+, radial,left: 1+ Gastrointestinal/Abdominal: non tender, soft Back Exam: no CVA tenderness, no vertebral tenderness Extremities Exam: non-tender, other - BUE HELD IN DECORTICATE POSITION AND PT IS UNABLE TO MOVE HIS ARMS, THOUGH HE IS TRYING. HE IS ABLE TO MILDLY FLEX/EXT R DIGITS BUT NOT LEFT. Mental Status: disoriented x 3 - DOES NOT COMMAND, OTHER THAN ANSWERING "YES" OR "NO". 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 Coordination/Gait: ABN nose to finger (R), ABN nose to finger (L) Motor/Sensory: weak motor strength RUE, weak motor strength LUE, other - PT UNABLE TO DISCRIMINATE L AND R SENSORY ON HIS HANDS. Skin Exam: normal color, warm/dry Progress - Progress Progress: 06/25/19 21:41 CT HEAD - NO HEMORRHAGE. NIH STROKE SCALE 18. CLINICALLY PT HAD A STROKE AT 19:20 TODAY (2 HR 20 MIN AGO) SO WITHIN 3-4.5 HR THROMBOLYTIC WINDOW, HOWEVER PT HAS 2 ABSOLUTE CONTRAINDICATIONS TO TPA. 1. ELEVATED PTT. 2. CURRENT USE OF DIRECT THROMBIN INHIBITORS (ELIQUIS). IS ALREADY ON STATIN, LIPITOR 20 QDAY. 06/25/19 21:49 I SPOKE WITH [facility], DR. FRANKLIN, NEURO, AND DR. PÉREZ, ER PHYSICIAN, WHO HAS ACCEPTED FURTHER CARE. DR. FRANKLIN'S RECOMMENDATION WAS TO TRANSFER AND NOT GIVE TPA, PT HAS CONTRAINDICATION. THANK YOU, [facility], FOR ACCEPTING FURTHER CARE. EKG - AFIB RATE CONTROLLED. CBC - HGB 10.6. CMP ELEV POTASSIUM. ELEV BUN AND CR (CHRONIC PER CHART REVIEW), CRF. COAGS ELEVATED. CARD ENZ NEG. CXR BL UPPER LOBE PNE. 06/25/19 22:16 I RE-EXAMINED PT. HE IS NOW MOVING BUE AND IS MORE ALERT. MY HOPE IS HIS SX ARE DUE TO BL UPPER LOBE PNEUMONIA AND NOT STROKE. GIVING 1ST DOSE OF ZOSYN. 06/25/19 22:22 - EKG/XRAY/CT CT Ordered: Yes Stroke Information - Onset of Symptoms Symptoms of Stroke: Weakness of limb, Right Hemiparesis, Left Hemiparesis Stroke Onset of Symptoms Date: 06/25/19 Stroke Onset of Symptoms Time: 19:20 - Contraindications t-PA Contraindication: Medical Contraindication - TAKES ELIQUIS BID. HAS ELEVATED PTT. Departure - Departure Clinical Impression: Hyperkalemia Stroke Qualifiers: CVA mechanism: occlusion Precerebral and cerebral artery: unspecified cerebral artery Qualified Code(s): I63.50 - Cerebral infarction due to unspecified occlusion or stenosis of unspecified cerebral artery Pneumonia Qualifiers: Pneumonia type: due to unspecified organism Laterality: bilateral Lung lo cation: upper lobe of lung Qualified Code(s): J18.9 - Pneumonia, unspecified organism Anemia Qualifiers: Anemia type: unspecified type Qualified Code(s): D64.9 - Anemia, unspecified CRF (chronic renal failure) Qualifiers: Chronic kidney disease stage: unspecified stage Qualified Code(s): N18.9 - Chronic kidney disease, unspecified Disposition: Transfer to Hospital Condition: Serious Referrals: JAYY SIMPSON [Primary Care Provider] - 1-2 Weeks Home Medications: Ambulatory Orders Bupropion HCl [Bupropion Hydrochloride E] 150 mg PO DAILY 01/11/16 Citalopram Hydrobromide 20 mg PO BEDTIME 01/11/16 Furosemide [Lasix] 40 mg PO BID 01/11/16 Multiple Vitamins W/ Minerals [Multivitamin Men] 1 tab PO DAILY 01/11/16 Albuterol Sulfate Nebs [Proventil Nebs] 2.5 mg INH Q6H PRN 08/11/19 Apixaban [Eliquis] 5 mg PO BID 10/28/18 Arformoterol Tartrate Nebs [Brovana Nebs] 15 mcg NEB RTBID 10/28/18 Bisacodyl [Dulcolax] 10 mg PO DAILY PRN 10/28/18 Budesonide (Inhalation) [Budesonide] 0.25 mg IN Q12H 10/28/18 Clonidine HCl 0.1 mg PO Q8H PRN 10/28/18 Divalproex Sodium [Divalproex Sodium ER] 250 mg PO BEDTIME 10/28/18 Donepezil HCl [Aricept] 5 mg PO BEDTIME 10/28/18 Guaifenesin 200 mg PO TID 10/28/18 Insulin Lispro [Humalog Kwikpen] 5 unit SC AC 10/28/18 Insulin Lispro [Humalog Kwikpen] See Protocol SC ACHS 10/28/18 Lactobacillus [Acidophilus Lactobacilli] 1 cap PO TID 10/28/18 Acetaminophen [Tylenol] 650 mg PO Q8HR PRN 10/29/18 Atorvastatin Calcium [Lipitor] 20 mg PO DAILY 10/29/18 Hydroxyzine HCl 25 mg PO Q6HR PRN 10/29/18 Insulin Detemir [Levemir Pen] 20 units SUBCU BEDTIME 10/29/18 Ipratropium/Albuterol [Duoneb] 3 ml NEB Q6HR PRN 10/29/18 Losartan Potassium 50 mg PO DAILY 10/29/18 Metoprolol Succinate [Metoprolol Succinate ER] 50 mg PO DAILY 10/29/18 Potassium Chloride [Potassium Chloride ER] 20 meq PO BID 10/29/18 Quetiapine Fumarate [Seroquel] 75 mg PO BEDTIME 10/29/18 Sodium Bicarbonate Tab 650 mg PO DAILY 10/29/18 Tramadol HCl 50 mg PO Q6HR PRN 10/29/18 Valsartan 160 mg PO DAILY 10/29/18 Amoxicillin & Pot Clavulanate [Augmentin Tab] 875 mg PO BID 10 Days #20 tab 11/01/18 Transfer to Outside Facility - Transfer Information Decision to Transfer Date: 06/25/19 Decision to Transfer Time: 22:25 Reason for Transfer: specialized care not available Accepting Provider:: DR. PÉREZ, ER Accepting Facility: [facility]
--- NOTE | 2019-06-25 21:28 | RAD ---
EXAM: AP CHEST RADIOGRAPH CLINICAL INDICATION: Stroke. Shortness of breath. COMPARISON: Compared to the chest radiograph of October 28, 2018. FINDINGS: Unchanged panchamber cardiac enlargement. Mild pulmonary congestion. Consolidation in the inferior aspect of right upper lobe. Small peripheral consolidation in the inferior aspect of left upper lobe. No pleural effusions. No pneumothorax, pneumomediastinum or free peritoneal gas. No hilar or mediastinal lymphadenopathy. No mediastinal widening. Bones are intact on this single view. IMPRESSION: 1. Bilateral upper lobe subtle consolidations suspicious for pneumonia. 2. Suspect mild congestive failure. Electronically signed by: Archie Gregg MD 06/25/2019 9:26 PM CDT
[2019-06-25] MEDS: ASPIRIN (CHEWABLE) 81 MG TAB PO ONE (21:33)
[2019-06-25] MEDS ORDERED: SODIUM CHLORIDE 0.9% 50ML 50 ML ONE (22:16)
[2019-06-25] MEDS ORDERED: PIPERACILLIN/TAZOBACTAM 2.25 GM VIAL IVPB ONE (22:16)
[2019-06-25] MEDS: PIPERACILLIN/TAZOBACTAM 2.25 GM in SODIUM CHLORIDE 0.9% 50ML 50 ML IVPB ONE (22:17)
[2019-06-25 22:40] VITALS: BP 161/103; TEMP 99.1; O2SAT 94
== END 2019-06-25 22:38 | disposition short-term general hospital (02) ==
LOC: ER 20:07
DX: I63.50 Cerebral infarction due to unspecified occlusion or stenosis of unspecified cerebral artery (principal); F03.90 Unspecified dementia, unspecified severity, without behavioral disturbance, psychotic disturbance, mood disturbance, and anxiety; J18.9 Pneumonia, unspecified organism; D64.9 Anemia, unspecified; I12.9 Hypertensive chronic kidney disease with stage 1 through stage 4 chronic kidney disease, or unspecified chronic kidney disease; N18.9 Chronic kidney disease, unspecified; E87.5 Hyperkalemia; E11.9 Type 2 diabetes mellitus without complications; J44.9 Chronic obstructive pulmonary disease, unspecified; Z79.4 Long term (current) use of insulin; Z95.5 Presence of coronary angioplasty implant and graft; Z79.899 Other long term (current) drug therapy; I50.9 Heart failure, unspecified
CPT/HCPCS: 70450; 71045; 80053; 82550; 82553; 82948; 84484; 85025; 85610; 85730; 93005; A4216; J2543

== ENCOUNTER 2019-07-14 05:48 | Observation (INO) | payer MEDICARE, OTHER ==
[2019-07-14] MEDS ORDERED: DEXTROSE 50% 25 GM/50 ML SYG IV ONE ×3 (05:51→08:27)
[2019-07-14] MEDS ORDERED: SODIUM CHLORIDE 0.9% (FLUSH) 10 ML SYG IV PRN ×2 (06:01→10:03)
[2019-07-14] MEDS ORDERED: SODIUM CHLORIDE 0.9% 500ML 500 ML IVS ONE (06:03)
--- NOTE | 2019-07-14 06:10 | ED.PDOC ---
History of Present Illness - General Chief Complaint: General Stated Complaint: low O2 saturation Time Seen by Provider: 07/14/19 06:00 - History of Present Illness Initial Comments: 74-year-old male w/ PMHx CVA, CKD, prior admits for hyperkalemia, arrives via EMS after being found poorly responsive by staff at his shelter this morning. There was an initial report of low oxygen, although that has been confirmed now to be not true after a call back to the shelter. On EMS arrival, blood sugar was found to be 24. On review of his medication list, it appears he received Levemir at 7 PM last night, with a start date of 07/12 listed on medical list. We are having difficulty confirming whether this is a new medication with the shelter, as bedside nurse is not available by report. Hx is limited by his AMS. Allergies/Adverse Reactions: Allergies NO KNOWN ALLERGY Allergy (Verified 12/17/17 22:34) Home Medications: Ambulatory Orders Furosemide [Lasix] 40 mg PO BID 01/11/16 Clonidine HCl 0.1 mg PO Q8H PRN 10/28/18 Divalproex Sodium [Divalproex Sodium ER] 250 mg PO BEDTIME 10/28/18 Lactobacillus [Acidophilus Lactobacilli] 1 cap PO TID 10/28/18 Losartan Potassium 50 mg PO DAILY 10/29/18 Metoprolol Succinate [Metoprolol Succinate ER] 100 mg PO DAILY 10/29/18 Quetiapine Fumarate [Seroquel] 100 mg PO BEDTIME 10/29/18 Sodium Bicarbonate Tab 650 mg PO DAILY 10/29/18 Tramadol HCl 50 mg PO Q6HR PRN 10/29/18 Amlodipine Besylate [Norvasc] 10 mg PO DAILY 07/14/19 Ascorbic Acid [Vitamin C] 500 mg PO DAILY 07/14/19 Divalproex Sodium ER [Depakote ER] 2 tablet PO DAILY 07/14/19 Duloxetine HCl [Cymbalta] 60 mg PO DAILY 07/14/19 Insulin Detemir [Levemir Pen] 10 units SUBCU DAILY 07/14/19 Trazodone HCl [Trazodone Hydrochloride] 50 mg PO DAILY 07/14/19 Review of Systems - Review of Systems Review of Systems: 07/14/19 06:09 Limited by his AMS Past Medical History (General) - Patient Medical History Hx Seizures: No Hx Stroke: Yes Hx Dementia: No Hx Asthma: No Hx of COPD: Yes Hx Cardiac Disorders: Yes - hx stent placed Hx Congestive Heart Failure: Yes Hx Pacemaker: No Hx Hypertension: Yes Hx Thyroid Disease: No Hx Diabetes: Yes Hx Gastroesophageal Reflux: No Hx Renal Disease: Yes Hx Cancer: No Hx of HIV: No Hx Hepatitis C: No Hx MRSA: Yes MRSA Source:: Wound - Vaccination History Hx Tetanus, Diphtheria Vaccination: Yes Hx Influenza Vaccination: Yes Hx Pneumococcal Vaccination: Yes - Social History Hx Tobacco Use: No Hx Chewing Tobacco Use: No Hx Alcohol Use: No Hx Substance Use: No Hx Substance Use Treatment: No Hx Depression: Yes Hx Physical Abuse: No Hx Emotional Abuse: No Hx Suspected Abuse: No - Female History Patient : No Family Medical History - Family History Father Family History: Unknown Hx Cardiac Disease: Yes Hx Family Cancer: Yes - dad Hx Family;Other: Alzheimers Dementia -mom Physical Exam - Physical Exam Comments: General Appearance: Patient is lethargic, obese, appears chronically ill. Skin: Warm and dry. No diaphoresis. Head: Normocephalic/atraumatic. Eyes: PERRL, lids, conjunctiva and sclera unremarkable. EOMI intact. ENT: No nasal discharge. Oropharynx. Without erythema, exudate, lesions. Dry mucous membranes. Neck: Supple. No LAD. No tenderness. No JVD noted. Respiratory: Normal rate and effort. Breath sounds coarse Cardiovascular: Regular rate. Heart sounds normal. No murmur. GI: Abdomen soft, non-distended and non-tender. No rebound/guarding. Bowel sounds normal. Obese. Musculoskeletal: Extremities. No effusion, cyanosis, edema. Uses left side to move in bed Neurological: Lethargic. No facial palsy. mumbling, not following commands. Gag intact. R sided weakness Progress - Progress Progress: Vital Signs - 24 hr 07/14/19 05:55 Temperature 96.9 F L Pulse Rate [ 73 monitor] Respiratory 18 Rate Blood Pressure 127/74 [Left Arm] O2 Sat by Pulse 100 Oximetry 07/14/19 06:24 arrives w/ low blood sugar, lethargic, unclear if new insulin regimen. after D50, is much more alert, interacting w staff. screening labs pending, but CXR w/ opacities in lower region of RUL, appears worse than earlier this month, when xferred to [facility], w/ concern for CVA and pna. will plan blood cx, empiric abx, continue to monitor at this time. called back to [facility], states he has been on his PM dose of Levemir "for a long time". 07/14/19 06:00 PTT [PARTIAL THROMBOPLASTIN TIME] Stat 07/14/19 06:01 Sodium Chloride 0.9% (Flush) [Saline Flush Syringe] 10 ml IV PRN PRN 07/14/19 06:13 cefTRIAXone SODIUM [Rocephin] 2 gm Sodium Chl 0.9% 100Ml Mini-Bag [NS 100ml MINI-BAG+] 100 ml IVPB ONCE Pulse Ox Stat URINALYSIS Stat 07/14/19 06:15 EKG STAT EKG STAT 07/14/19 06:23 Azithromycin IV [Zithromax IV] 500 mg Sodium Chloride 0.9% 250Ml [NS 250ml] 250 ml IVPB ONCE 07/14/19 06:24 BLOOD CULTURE Stat 07/14/19 06:29 URINALYSIS Stat 07/14/19 06:58 ED Intent to Admit Routine, d/w Tho, admitting clinician. Laboratory Results WBC 4.9 K/mm3 (4.8-10.8) 07/14/19 06:00 RBC 3.41 M/mm3 (4.70-6.10) L 07/14/19 06:00 Hgb 10.2 gm/dL (14.0-18.0) L 07/14/19 06:00 Hct 30.8 % (42.0-52.0) L 07/14/19 06:00 MCV 90.2 fl (80.0-94.0) 07/14/19 06:00 MCH 29.9 pg (27.0-31.0) 07/14/19 06:00 MCHC 33.2 g/dL (33.0-37.0) 07/14/19 06:00 RDW 20.7 % (11.5-14.5) H 07/14/19 06:00 Plt Count 221 K/mm3 (130-400) 07/14/19 06:00 MPV 7.7 fl (7.40-10.4) 07/14/19 06:00 Absolute Neuts (auto) 3.60 K/uL (1.8-6.8) 07/14/19 06:00 Absolute Lymphs (auto) 0.80 K/uL (1.0-3.4) L 07/14/19 06:00 Absolute Monos (auto) 0.30 K/uL (0.2-0.8) 07/14/19 06:00 Absolute Eos (auto) 0.10 K/uL (0.0-0.4) 07/14/19 06:00 Absolute Basos (auto) 0.00 K/uL (0.0-0.1) 07/14/19 06:00 Neutrophils % 72.5 % (42.0-78.0) 07/14/19 06:00 Lymphocytes % 16.8 % (20.0-50.0) L 07/14/19 06:00 Monocytes % 7.0 % (2.0-9.0) 07/14/19 06:00 Eosinophils % 3.0 % (1.0-5.0) 07/14/19 06:00 Basophils % 0.7 % (0.0-2.0) 07/14/19 06:00 Sodium 142 mmol/L (135-145) 07/14/19 06:00 Potassium 4.1 mmol/L (3.6-5.0) 07/14/19 06:00 Chloride 107 mmol/L (101-111) 07/14/19 06:00 Carbon Dioxide 27 mmol/L (21-31) 07/14/19 06:00 Anion Gap 12.1 (12-18) 07/14/19 06:00 BUN 48 mg/dL (7-18) H 07/14/19 06:00 Creatinine 2.80 mg/dL (0.6-1.3) H 07/14/19 06:00 BUN/Creatinine Ratio 17.1 (10-20) 07/14/19 06:00 POC Glucose 98 mg/dL (70-105) 07/14/19 06:14 Random Glucose 26 mg/dL (70-105) L* 07/14/19 06:00 Serum Osmolality 291.7 mOsm/L (275-295) 07/14/19 06:00 Lactic Acid 0.7 mmol/L (0.5-2.2) 07/14/19 06:00 Calcium 9.2 mg/dL (8.4-10.2) 07/14/19 06:00 Total Bilirubin 1.0 mg/dL (0.2-1.0) 07/14/19 06:00 AST 20 IU/L (10-42) 07/14/19 06:00 ALT 13 IU/L (10-60) 07/14/19 06:00 Alkaline Phosphatase 81 IU/L (42-121) 07/14/19 06:00 Troponin I 0.02 ng/mL (0.01-0.05) 07/14/19 06:00 C-Reactive Protein 2.8 mg/dL (0-1.0) H 07/14/19 06:00 Serum Total Protein 6.7 gm/dL (6.4-8.2) 07/14/19 06:00 Albumin 3.5 g/dl (3.2-5.5) 07/14/19 06:00 Globulin 3.2 gm/dL (2.3-3.5) 07/14/19 06:00 Albumin/Globulin Ratio 1.1 (1.1-1.9) 07/14/19 06:00 [id number] We have now received MAR from [facility], it appears the levemir was restarted last night, despite earlier communication from that facility. - EKG/XRAY/CT EKG: Atrial, Fibrillation, nonspecific ST T wave Chg Comments: rate 63 XRAY: chest - RUL opacity concerning for infiltrate Departure - Departure Clinical Impression: Pneumonia, Hypoglycemia, Morbid obesity with BMI of 50.0-59.9, adult, Diabetes 1.5, managed as type 1, Hemiparesis due to old cerebrovascular accident Time of Disposition: :28 Disposition: Admit Patient Condition: Poor Referrals: JAYY SIMPSON [Primary Care Provider] - 1-2 Weeks Home Medications: Ambulatory Orders Furosemide [Lasix] 40 mg PO BID 01/11/16 Clonidine HCl 0.1 mg PO Q8H PRN 10/28/18 Divalproex Sodium [Divalproex Sodium ER] 250 mg PO BEDTIME 10/28/18 Lactobacillus [Acidophilus Lactobacilli] 1 cap PO TID 10/28/18 Losartan Potassium 50 mg PO DAILY 10/29/18 Metoprolol Succinate [Metoprolol Succinate ER] 100 mg PO DAILY 10/29/18 Quetiapine Fumarate [Seroquel] 100 mg PO BEDTIME 10/29/18 Sodium Bicarbonate Tab 650 mg PO DAILY 10/29/18 Tramadol HCl 50 mg PO Q6HR PRN 10/29/18 Amlodipine Besylate [Norvasc] 10 mg PO DAILY 07/14/19 Ascorbic Acid [Vitamin C] 500 mg PO DAILY 07/14/19 Divalproex Sodium ER [Depakote ER] 2 tablet PO DAILY 07/14/19 Duloxetine HCl [Cymbalta] 60 mg PO DAILY 07/14/19 Insulin Detemir [Levemir Pen] 10 units SUBCU DAILY 07/14/19 Trazodone HCl [Trazodone Hydrochloride] 50 mg PO DAILY 07/14/19 Comments: Luigi Ramos MD Emergency Medicine #[id number] Decision To Admit - Decistion To Admit Decision to Admit Date: 07/14/19 Decision to Admit Time: 06:27
[2019-07-14] MEDS ORDERED: cefTRIAXone SODIUM 2 GM in SODIUM CHL 0.9% 100ML MINI-BAG 100 ML IVPB ONE (06:13)
[2019-07-14] MEDS ORDERED: AZITHROMYCIN IV 500 MG in SODIUM CHLORIDE 0.9% 250ML 250 ML IVPB ONE (06:23)
--- NOTE | 2019-07-14 06:24 | RAD ---
CHEST 1 VIEW on 07/14/2019 CLINICAL INDICATION: Altered mental status COMPARISON: 06/25/2019 FINDINGS: Cardiomegaly is noted. This is a lower volume inspiration film. There is a small right pleural effusion. There are continued bilateral opacities consistent with edema and/or pneumonia. This may be superimposed on chronic interstitial changes. IMPRESSION: Small right pleural effusion with mild bilateral edema and/or pneumonia. Electronically signed by: Honorio Pires 07/14/2019 6:20 AM CDT
[2019-07-14] MEDS ORDERED: SODIUM CHLORIDE 0.9% 250ML 250 ML ONE (06:30)
[2019-07-14] MEDS ORDERED: AZITHROMYCIN IV 500 MG VIAL IVPB ONE (06:30)
[2019-07-14] MEDS ORDERED: SODIUM CHL 0.9% 100ML MINI-BAG 100 ML IVPB ONE (06:30)
--- NOTE | 2019-07-14 08:16 | HP ---
SUPERVISING PHYSICIAN: Anibal Schmidt MD CHIEF COMPLAINT: Acute mental status change. HISTORY OF PRESENT ILLNESS: The patient is a 74 year-old male patient who resides at [facility]. He has a longstanding history of CVA, chronic kidney disease, atrial fibrillation and type 2 diabetes on insulin. 911 was called this morning when reportedly by the facility nurses, the patient was noted to be lethargic. On arrival by EMS his blood sugar was found to be 24. The patient was brought to the Emergency Room, he was given D50 prior to transport and on arrival the patient was showing to be much more alert. He was recently transferred on 06/25/19 from [facility] to [facility] in [place] for a possible stroke versus pneumonia. Those records are not available at time of admission but according to the [facility] staff, the patient was treated for pneumonia and discharged back to [facility] and apparently was started on a new regimen of Levemir which was started last night. The patient has baseline deficits due to previous strokes and is unable to provide any significant history. Therefore, most of the history is obtained from EMS records and Emergency Room chart. In the Emergency Room, his initial vital signs showed he was afebrile with a temperature of 96.9, pulse 73, blood pressure 127/74, respirations 18, oxygen saturation 100% on nasal cannula at 2 liters. Further workup in the Emergency Room included labs that showed he had a normal white count of 4,900 without a left shift, hemoglobin 10.2, hematocrit 30.8. Initial chemistries showed normal electrolytes, creatinine 2.80 which is pretty close to the patient's baseline creatinine as I review his charts indicating his baseline creatinine to be around 2.7 to 2.8. A repeat of his blood sugar initially on labs showed his blood sugar dropped again to 26. He was given an amp of D50. Single view chest x-ray showed a small right pleural effusion with mild bilateral edema and/or pneumonia. The patient was showing to be hemodynamically stable, no signs of overt infection but having recently been treated for pneumonia and given his severe hypoglycemia, he is going to be placed in observation to help stabilize his blood sugar prior to returning back to [facility]. He was started on antibiotics in the Emergency Room because of previous treatment for pneumonia, although the patient is afebrile without a leukocytosis and x-ray does show improvement from previous. Once the patient was able to get D50, he was showing to be back to his baseline mental status with no obvious signs of neurological deficits indicating any kind of acute stroke. The patient is wheelchair bound and is apparently able to feed himself at times but is noncommunicative other than saying yes or no at times. The patient was showing to be stable and will be placed in observation for further treatment. PAST MEDICAL HISTORY: 1. Congestive heart failure, unknown type and without echocardiogram at time of admission. 2. Atrial fibrillation. 3. Dementia. 4. Hypertension. 5. Anemia. 6. Type 2 diabetes mellitus on insulin. 7. Morbid obesity. 8. Obstructive sleep apnea. 9. Coronary artery disease. 10. Previous CVAs with residual effects. 11. Chronic obstructive pulmonary disease. 12. Chronic low back pain. 13. Chronic kidney disease with baseline creatinine being about 6.8. PAST SURGICAL HISTORY: 1. Hemorrhoidectomy. 2. Foot surgery. CURRENT MEDICATIONS: Awaiting an updated list of medications from the [facility] to be verified in the medical record. ALLERGIES: No known drug allergies. FAMILY HISTORY: Previous records show his sister has type 2 diabetes mellitus. Brother had prostate cancer. Mother at age 76 due to heart disease. Father due to issues of GI tract. SOCIAL HISTORY: The patient is a former smoker but quit 25 years previously. He has no alcohol or illicit drug usage and resides at [facility]. REVIEW OF SYSTEMS: Unable to fully obtain due to patient's dementia and current mental status. PHYSICAL EXAMINATION: VITAL SIGNS: Temperature 96.9, pulse 72, blood pressure 127/74, respirations 18, oxygen saturation 100% on 2 liters nasal cannula. Admission weight 134 kg. GENERAL: The patient is alert at time of my exam,obese, chronically ill but showed to be in no acute distress. HEENT: Tympanic membranes are clear bilaterally. Oropharynx pink and moist without lesions. NECK: Supple, non-tender, full range of motion, no jugular venous distention. CHEST: Lung sounds clear, just diminished towards the bases without rhonchi, rales, or wheezes. CARDIOVASCULAR: Regular rate and rhythm workup appreciable murmurs, rubs, or gallops. ABDOMEN: Obese, soft, non-tender, positive bowel sounds. EXTREMITIES: No cyanosis, clubbing, or edema. He does move his left upper and lower extremities and is baseline deficit on the right. NEUROLOGIC: He is alert, unable to obtain full exam due to patient's inability to follow complicated exam requests but cranial nerves II through XII appear to be grossly intact except as noted with the right-sided hemiparesis which is residual from previous strokes. SKIN: Warm, pink and dry. LABORATORY: White count normal at 4,900, hemoglobin stable at 10.2 and hematocrit 30.8, platelet count 222,000. Differential shows to be without a left shift. Coagulation studies showed a PTT of 34.7. Chemistries on admission showed normal electrolytes with glucose of 26, after D50 was 98. Liver functions were showing to be within normal limits. Troponin 0.02, creatinine 2.80 with BUN 48. Urinalysis was pending. RADIOLOGY: Chest x-ray per radiology interpretation showed small right pleural effusion with mild bilateral edema and/or pneumonia. ASSESSMENT: 1. Severe hypoglycemic event having started a new regimen including Levemir. 2. Chronic kidney disease that appears to be stable with baseline creatinine being around 2.8, 3. Diabetes mellitus type 2, on insulin as noted in #1 with a hypoglycemic event. 4. Recent treatment for pneumonia at [facility] but without current signs of sepsis with x-ray showing improvement since previous admission. 5. Morbid obesity with obstructive sleep apnea. 6. History of congestive heart failure, unknown type without any echocardiogram available on admission without any current signs of acute exacerbation. PLAN: The patient is gong to be admitted for treatment of hypoglycemia. He was given multiple doses of D50 in the Emergency Room and will start him on an IV infusion of D5 a.c. and h.s. and Accu-Cheks along with every 2 hours as needed until we get a stable blood sugar. He has been started on antibiotics for continued empiric coverage given his past history. As [facility] resides at a [facility] and has recently been treated at [facility], we will hold off on any COVID-19 testing at this point. We will need to contact [facility] to get further records and see what was actually done at [facility] as far as previous treatment for the pneumonia. Will hold off on insulin until his blood sugars are stable but will review the rest of his medications and start those as appropriate to care. He is in observation. I would anticipate probably being able to discharge back tomorrow to [facility]. Until then, we will continue to monitor and treat as needed. #[id number] [facility]
[2019-07-14] MEDS ORDERED: ACETAMINOPHEN 325 MG TAB PO PRN (10:03)
[2019-07-14] MEDS ORDERED: ONDANSETRON INJ 4 MG/2 ML VIAL IV PRN (10:03)
[2019-07-14] MEDS ORDERED: MAGNESIUM HYDROXIDE 30 ML UD PO PRN (10:03)
[2019-07-14] MEDS ORDERED: GLUCAGON INJ 1 MG VIAL SUBCU PRN (10:03)
[2019-07-14] MEDS ORDERED: KCL 20MEQ/D5 1/2NS 1,000 ML IVS PRN (10:03)
[2019-07-14] MEDS ORDERED: DEXTROSE 50% 25 GM/50 ML SYG IV PRN (10:03)
[2019-07-14] MEDS ORDERED: IV SET AND CAP CHANGE INJ INJ SCH (10:30)
[2019-07-14] MEDS ORDERED: cefTRIAXone SODIUM 1 GM in SODIUM CHL 0.9% 50ML MIN-BAG+ 50 ML IVPB SCH (10:30)
[2019-07-14] MEDS: METOPROLOL SUCCINATE XL 100 MG TAB PO SCH (10:40)
[2019-07-14] MEDS: INSULIN LISPRO 100 UNITS/ML PEN SUBCU SCH ×3 (11:30→21:07)
[2019-07-14] MEDS ORDERED: [UNRECOGNIZED DRUG - OTHER] PO SCH (12:30)
[2019-07-14] MEDS ORDERED: ISOSORBIDE DINITRATE PO SCH (12:30)
[2019-07-14] MEDS ORDERED: BUDESONIDE NEBS 0.25 MG/2 ML INH NEB SCH (12:30)
[2019-07-14] MEDS ORDERED: HYDRALAZINE PO SCH (12:30)
[2019-07-14] MEDS ORDERED: FUROSEMIDE 40 MG TAB PO SCH (13:00)
[2019-07-14] MEDS: VALSARTAN 80 MG TAB PO SCH (13:17)
[2019-07-14] MEDS: APIXABAN 5 MG TAB PO SCH ×2 (13:17→21:06)
[2019-07-14] MEDS: SODIUM BICARBONATE 650 MG TAB PO SCH (13:18)
[2019-07-14] MEDS: amLODIPine BESYLATE 5 MG TAB PO SCH (13:18)
[2019-07-14] MEDS: ISOSORBIDE DINITRATE 5 MG TAB PO SCH ×2 (13:18→21:07)
[2019-07-14] MEDS: POTASSIUM CHLORIDE 20 MEQ TAB PO SCH (17:52)
[2019-07-14] MEDS: FUROSEMIDE 40 MG TAB PO SCH (17:52)
[2019-07-14] MEDS ORDERED: QUEtiapine FUMARATE 100 MG TAB ONE (18:58)
[2019-07-14] MEDS ORDERED: DULoxetine HCL 30 MG CAP PO ONE (18:58)
[2019-07-14] MEDS ORDERED: LOSARTAN POTASSIUM 100 MG TAB ONE (18:58)
[2019-07-14] MEDS ORDERED: PANTOPRAZOLE SODIUM IV 40 MG VIAL ONE (18:59)
[2019-07-14] MEDS ORDERED: DIVALPROEX SODIUM ER 250 MG TAB PO ONE (18:59)
[2019-07-14] MEDS: ARFORMOTEROL TARTRATE 15 MCG/2 ML NEB NEB SCH (20:32)
[2019-07-14] MEDS: QUEtiapine FUMARATE 100 MG TAB PO SCH (21:06)
[2019-07-14] MEDS: DULoxetine HCL 30 MG CAP PO SCH (21:06)
[2019-07-14] MEDS: DIVALPROEX SODIUM ER 250 MG TAB PO SCH (21:07)
[2019-07-14] MEDS: LOSARTAN POTASSIUM 25 MG TAB PO SCH (21:09)
[2019-07-15] MEDS: ISOSORBIDE DINITRATE 5 MG TAB PO SCH ×3 (05:06→20:20)
[2019-07-15] MEDS: PANTOPRAZOLE SODIUM IV 40 MG VIAL IV SCH (06:10)
[2019-07-15] MEDS: INSULIN LISPRO 100 UNITS/ML PEN SUBCU SCH ×4 (07:10→21:33)
[2019-07-15] MEDS ORDERED: SODIUM CHLORIDE 0.9% 250ML 250 ML ONE (07:13)
--- NOTE | 2019-07-15 07:13 | RAD ---
EXAM: XR Chest, 1 View CLINICAL HISTORY: The patient is 74 years old and is Male; Pneumonia TECHNIQUE: Frontal view of the chest. COMPARISON: Chest radiograph from 07/14/2019 FINDINGS: LUNGS: Pulmonary vascular congestion again demonstrated. Persistent ill-defined opacity in the right mid to lower lung, which appears minimally improved since the prior study. There is minimal interstitial prominence in the remainder of the lungs which is similar to the prior study. PLEURAL SPACE: Apparent small right pleural effusion again visualized. No pneumothorax. HEART: Stable moderate enlargement of the cardiac silhouette. MEDIASTINUM: Unremarkable. BONES/JOINTS: Degenerative changes of the spine. No obvious acute fracture. IMPRESSION: Persistent ill-defined opacity in the right mid to lower lung, which appears minimally improved since the prior study. This may represent atelectasis or pneumonia. Small right pleural effusion again demonstrated. Electronically signed by: Beulah Marcum MD 07/15/2019 7:12 AM CDT
[2019-07-15] MEDS ORDERED: SODIUM CHL 0.9% 50ML MIN-BAG+ 50 ML IVPB ONE (07:14)
[2019-07-15] MEDS ORDERED: cefTRIAXone SODIUM 1 GM VIAL ONE (07:15)
[2019-07-15] MEDS ORDERED: AZITHROMYCIN IV 500 MG VIAL IVPB ONE (07:15)
[2019-07-15] MEDS ORDERED: cefTRIAXone SODIUM 1 GM in SODIUM CHL 0.9% 50ML MIN-BAG+ 50 ML IVPB SCH (07:30)
[2019-07-15] MEDS: POTASSIUM CHLORIDE 20 MEQ TAB PO SCH ×2 (08:00→17:09)
[2019-07-15] MEDS: VALSARTAN 80 MG TAB PO SCH (08:23)
[2019-07-15] MEDS: amLODIPine BESYLATE 5 MG TAB PO SCH (08:23)
[2019-07-15] MEDS: SODIUM BICARBONATE 650 MG TAB PO SCH (08:23)
[2019-07-15] MEDS: METOPROLOL SUCCINATE XL 100 MG TAB PO SCH (08:23)
[2019-07-15] MEDS: FUROSEMIDE 40 MG TAB PO SCH ×2 (08:23→17:09)
[2019-07-15] MEDS: QUEtiapine FUMARATE 100 MG TAB PO SCH ×2 (08:24→20:21)
[2019-07-15] MEDS: APIXABAN 5 MG TAB PO SCH ×2 (08:24→20:21)
[2019-07-15] MEDS ORDERED: KCL 20MEQ/D5 1/2NS 1,000 ML IVS PRN (08:38)
[2019-07-15] MEDS: ARFORMOTEROL TARTRATE 15 MCG/2 ML NEB NEB SCH ×2 (08:45→20:18)
[2019-07-15] MEDS: BUDESONIDE NEBS 0.25 MG/2 ML INH NEB SCH ×2 (08:45→20:18)
[2019-07-15] MEDS ORDERED: METOPROLOL SUCCINATE XL 50 MG TAB PO SCH (09:00)
[2019-07-15] MEDS ORDERED: AZITHROMYCIN IV 500 MG in SODIUM CHLORIDE 0.9% 250ML 250 ML IVPB SCH (09:00)
[2019-07-15] MEDS: NYSTATIN POWDER 15GM BTTL TOP SCH ×4 (09:01→20:22)
--- NOTE | 2019-07-15 10:33 | PN ---
SUPERVISING PHYSICIAN: Miguelito Chavarria MD DATE: 07/15/19 SUBJECTIVE: The patient is without any significant complaints. Blood sugars are improved this morning, up in the 120s, however, he did not really eat his breakfast much. OBJECTIVE: VITAL SIGNS: Blood pressure 123/74. Heart rate 82. Respiratory rate 16. Temperature 97.9. Oxygen saturation 99%. GENERAL: Mr. Bee is a 74-year-old male patient in no active distress. NEUROLOGIC: The patient is at his baseline, confused, but follows simple commands. LUNGS: Diminished in the bases, otherwise clear to auscultation bilaterally. CARDIOVASCULAR: Regular rate and rhythm. Normal S1, S2. ABDOMEN: Soft. Positive bowel sounds. EXTREMITIES: Lower extremities with some pitting edema around the ankles. Capillary refill is less than 2 seconds. LABORATORY: White count 3.1, hemoglobin 8.5, hematocrit 25.6, platelet count 168. Chemistry shows elevated BUN 46 and creatinine 2.89. Blood sugar 119. ASSESSMENT: 1. Severe hypoglycemia. 2. Altered mental status secondary to #1. 3. Chronic kidney disease. 4. Diabetes mellitus, type 2. 5. Recent treatment for pneumonia at [facility]. 6. Morbid obesity with obstructive sleep apnea. 7. History of congestive heart failure with no signs of acute exacerbation. PLAN: Glucoses seem to be improved. I will cut the D5 fluids down by 50%. We will continue to monitor the blood sugars. We will discontinue those fluids once blood sugars are more stable. I would recommend discontinuing any long- acting insulin at night. Given his chronic kidney disease, he may require more frequent alterations of his insulin regimen. #[id number] [facility]
[2019-07-15] MEDS: DIVALPROEX SODIUM ER 250 MG TAB PO SCH (20:20)
[2019-07-15] MEDS: DULoxetine HCL 30 MG CAP PO SCH (20:21)
[2019-07-15] MEDS: LOSARTAN POTASSIUM 25 MG TAB PO SCH (20:22)
[2019-07-16] MEDS: ISOSORBIDE DINITRATE 5 MG TAB PO SCH (04:50)
[2019-07-16] MEDS: PANTOPRAZOLE SODIUM IV 40 MG VIAL IV SCH (06:00)
[2019-07-16] MEDS: INSULIN LISPRO 100 UNITS/ML PEN SUBCU SCH (07:16)
[2019-07-16] MEDS: POTASSIUM CHLORIDE 20 MEQ TAB PO SCH (07:50)
[2019-07-16] MEDS: BUDESONIDE NEBS 0.25 MG/2 ML INH NEB SCH (08:30)
[2019-07-16] MEDS: ARFORMOTEROL TARTRATE 15 MCG/2 ML NEB NEB SCH (08:30)
[2019-07-16 08:57] VITALS: O2SAT 100
[2019-07-16] MEDS: NYSTATIN POWDER 15GM BTTL TOP SCH (09:03)
[2019-07-16] MEDS: APIXABAN 5 MG TAB PO SCH (09:03)
[2019-07-16] MEDS: QUEtiapine FUMARATE 100 MG TAB PO SCH (09:03)
[2019-07-16] MEDS: amLODIPine BESYLATE 5 MG TAB PO SCH (09:03)
[2019-07-16] MEDS: METOPROLOL SUCCINATE XL 100 MG TAB PO SCH (09:03)
[2019-07-16] MEDS: FUROSEMIDE 40 MG TAB PO SCH (09:03)
[2019-07-16] MEDS: VALSARTAN 80 MG TAB PO SCH (09:03)
[2019-07-16] MEDS: SODIUM BICARBONATE 650 MG TAB PO SCH (09:03)
[2019-07-16 11:18] VITALS: BP 142/85; TEMP 98
--- NOTE | 2019-07-16 12:02 | DS ---
SUPERVISING PHYSICIAN: Miguelito Chavarria MD ADMISSION DIAGNOSIS: 1. Severe hypoglycemic event after starting a new insulin regimen. 2. Chronic kidney disease with baseline creatinine around 2.8. 3. Diabetes mellitus, type 2, requiring insulin. 4. Recent treatment for pneumonia at [facility]. 5. Morbid obesity with obstructive sleep apnea. 6. History of congestive heart failure with no acute exacerbation. DISCHARGE DIAGNOSIS: 1. Severe hypoglycemic event after starting a new insulin regimen. 2. Chronic kidney disease with baseline creatinine around 2.8. 3. Diabetes mellitus, type 2, requiring insulin. 4. Recent treatment for pneumonia at [facility]. 5. Morbid obesity with obstructive sleep apnea. 6. History of congestive heart failure with no acute exacerbation. HOSPITAL COURSE: This is a 74-year-old male patient who resides at [facility]. The patient has a history of diabetes mellitus and 911 was called the morning of admission due to the patient being lethargic with a glucose of 24. He was given D50 and transported to the Emergency Room. His workup in the Emergency Room showed low glucoses and he was given additional D50. After the D50, the glucose would stabilize, but then start to drop again. Therefore, he was admitted with continuous dextrose fluids. Insulin was held. The patient was taking 10 units of Levemir twice a day in addition to sliding scale at [facility]. During his admission, the dextrose fluids were reduced and then subsequently discontinued. His glucoses remained acceptable. Therefore, he will be discharged [facility] to the [facility] today with a recommended adjustment in his insulin. I have discontinued the b.i.d. Levemir to be replaced with 5 units to be given in the morning of Levemir in addition to the sliding scale changes as well. He was getting 5 units with each meal plus the sliding scale insulin. I have discontinued the 5 units to be given with each meal and just to be given the sliding scale insulin based on glucose. Obviously, if his glucoses start to rise and he requires additional insulin, his regimen can be adjusted. He will followup with his primary care physician at the [facility]. Activity as tolerated. Diet is a diabetic [employer]. #[id number] [facility]
== END 2019-07-16 10:55 ==
LOC: ER 05:48 → MS 08:14
PROVIDERS: ADMIT Nurse Practitioner Family; ATTEND Nurse Practitioner
DX: E11.649 Type 2 diabetes mellitus with hypoglycemia without coma (principal); T38.3X5A Adverse effect of insulin and oral hypoglycemic [antidiabetic] drugs, initial encounter; R41.82 Altered mental status, unspecified; I13.0 Hypertensive heart and chronic kidney disease with heart failure and stage 1 through stage 4 chronic kidney disease, or unspecified chronic kidney disease; E11.22 Type 2 diabetes mellitus with diabetic chronic kidney disease; N18.9 Chronic kidney disease, unspecified; E66.01 Morbid (severe) obesity due to excess calories; Z68.43 Body mass index [BMI] 50.0-59.9, adult; G47.33 Obstructive sleep apnea (adult) (pediatric); I50.9 Heart failure, unspecified; I48.91 Unspecified atrial fibrillation; F03.90 Unspecified dementia, unspecified severity, without behavioral disturbance, psychotic disturbance, mood disturbance, and anxiety; I25.10 Atherosclerotic heart disease of native coronary artery without angina pectoris; J44.9 Chronic obstructive pulmonary disease, unspecified; G89.29 Other chronic pain; M54.5 Low back pain; I69.359 Hemiplegia and hemiparesis following cerebral infarction affecting unspecified side; Z66 Do not resuscitate; Z79.4 Long term (current) use of insulin; Z79.891 Long term (current) use of opiate analgesic; Z79.899 Other long term (current) drug therapy; Z87.01 Personal history of pneumonia (recurrent); Z87.891 Personal history of nicotine dependence; Z95.5 Presence of coronary angioplasty implant and graft
CPT/HCPCS: 96366; 96367; 96365; 96375 ×2; 96376 ×3; J0696 ×2; J7799 ×2; J7040; J7050 ×4; J0456 ×2; J7626 ×4; 80048; 80053; 82948 ×12; 36415; 81001; 86140; 85025 ×2; 87040 ×2; 82947 ×2; 85730; 84484; 36416 ×3; 83605; 71045 ×2; 94640 ×4; 94760 ×3; 99285; 93005; G0378

== ENCOUNTER 2019-07-24 21:23 | Emergency (ER) | payer MEDICARE, MEDICAID ==
[2019-07-24] MEDS: SODIUM CHLORIDE 0.9% 1000ML 1,000 ML IVS ONE ×2 (21:38→23:34)
[2019-07-24] MEDS: SODIUM CHLORIDE 0.9% (FLUSH) 10 ML SYG IV PRN (21:38)
[2019-07-24] MEDS ORDERED: PIPERACILLIN/TAZOBACTAM 3.375 GM VIAL IVPB ONE ×2 (21:40→22:13)
[2019-07-24] MEDS ORDERED: SODIUM CHL 0.9% 100ML MINI-BAG 100 ML IVPB ONE (21:41)
--- NOTE | 2019-07-24 21:44 | ED.PDOC ---
History of Present Illness - General Stated Complaint: altered menal status Time Seen by Provider: 07/24/19 21:33 Source: family, long-term records Exam Limitations: clinical condition, physical impairment - History of Present Illness Initial Comments: 74 y/o male brought from the [place] with AMS. He was found to be hyotensive, cold, and poorly responsive. He has an Out of Hospital with his other documents. Plan to treat aggressively short of intubation, other advanced airways and chest compressions Allergies/Adverse Reactions: Allergies NO KNOWN ALLERGY Allergy (Verified 12/17/17 22:34) Home Medications: Ambulatory Orders Furosemide [Lasix] 40 mg PO BID 01/11/16 Lactobacillus [Acidophilus Lactobacilli] 1 cap PO TIDFD 10/28/18 Metoprolol Succinate [Metoprolol Succinate ER] 100 mg PO DAILY 10/29/18 Quetiapine Fumarate [Seroquel] 100 mg PO BID 10/29/18 Sodium Bicarbonate Tab 650 mg PO DAILY 10/29/18 Amlodipine Besylate [Norvasc] 10 mg PO DAILY 07/14/19 Apixaban [Eliquis] 5 mg PO BID 07/14/19 Arformoterol Tartrate Nebs [Brovana Nebs] 15 mcg NEB RTBID 07/14/19 Ascorbic Acid [Vitamin C] 500 mg PO DAILY 07/14/19 Atorvastatin Calcium [Lipitor] 20 mg PO DAILY 07/14/19 Budesonide (Inhalation) [Budesonide] 0.25 mg IN BID 07/14/19 Clonidine HCl 0.1 mg PO Q6H PRN 07/14/19 Divalproex Sodium ER [Depakote ER] 2 tablet PO BEDTIME 07/14/19 Duloxetine HCl [Cymbalta] 60 mg PO BEDTIME 07/14/19 Insulin Aspart [Novolog Flexpen] 0 - 8 unit SC TIDFD 07/14/19 Isosorbide Dinitrate-Hydralazi [Bidil 20-37.5 mg] 1 tab PO Q8H 07/14/19 Multiple Vitamin [Multi Vitamin] 1 tab PO DAILY 07/14/19 Potassium Chloride [Potassium Chloride ER] 20 meq PO BID 07/14/19 Trazodone HCl [Trazodone Hydrochloride] 50 mg PO BEDTIME 07/14/19 Valsartan 160 mg PO DAILY 07/14/19 Insulin Detemir [Levemir] 5 unit SUBCU QAM 30 Days #30 vial 07/16/19 Review of Systems - Review of Systems Constitutional: States: weakness Respiratory: States: other - low pulse ox Unable to Obtain Due To: clinical condition Past Medical History (General) - Patient Medical History Hx Seizures: No Hx Stroke: Yes Hx Dementia: No Hx Asthma: No Hx of COPD: Yes Hx Cardiac Disorders: Yes - hx stent placed Hx Congestive Heart Failure: Yes Hx Pacemaker: No Hx Hypertension: Yes Hx Thyroid Disease: No Hx Diabetes: Yes Hx Gastroesophageal Reflux: No Hx Renal Disease: Yes Hx Cancer: No Hx of HIV: No Hx Hepatitis C: No Hx MRSA: Yes MRSA Source:: Wound - Vaccination History Hx Tetanus, Diphtheria Vaccination: Yes Hx Influenza Vaccination: Yes Hx Pneumococcal Vaccination: Yes - Social History Hx Tobacco Use: No Hx Chewing Tobacco Use: No Hx Alcohol Use: No Hx Substance Use: No Hx Substance Use Treatment: No Hx Depression: Yes Hx Physical Abuse: No Hx Emotional Abuse: No Hx Suspected Abuse: No - Female History Patient : No Family Medical History - Family History Father Family History: Unknown Hx Cardiac Disease: Yes Hx Family Cancer: Yes - dad Hx Family;Other: Alzheimers Dementia -mom Physical Exam - Physical Exam General Appearance: Lethargic, Obvious distress, Ill Appearing, Obese Eye Exam: bilateral conjunctivae pale Ears, Nose, Throat: other Neck: supple Respiratory: normal breath sounds, respiratory distress Cardiovascular/Chest: regular rate, rhythm, no murmur Gastrointestinal/Abdominal: soft, other - obese Neurologic: disoriented x 3 Skin Exam: pallor Progress - Progress Progress: 07/24/19 21:48 CXR cardiomegaly, elevated R hemidiaphram vs effusion EKG AFib with slow ventricular response rate 51 No STEMI, RBBB 07/25/19 00:[address] Portillo and he accepts patient in transfer Procedures - Foreign Body Removal Foreign Body Physician Comment:: Pt was asleep during exam and only roused for short periods of time. Departure - Departure Clinical Impression: Acute delirium Sepsis Qualifiers: Sepsis type: sepsis due to unspecified organism Sepsis acute organ dysfunction status: with acute organ dysfunction Severe sepsis acute organ dysfunction type: acute renal failure Acute renal failure type: unspecified Severe sepsis shock status: with septic shock Qualified Code(s): A41.9 - Sepsis, unspecified organism Disposition: Transfer to Hospital Condition: Poor Referrals: JAYY SIMPSON [Primary Care Provider] - 1-2 Weeks Home Medications: Ambulatory Orders Furosemide [Lasix] 40 mg PO BID 01/11/16 Lactobacillus [Acidophilus Lactobacilli] 1 cap PO TIDFD 10/28/18 Metoprolol Succinate [Metoprolol Succinate ER] 100 mg PO DAILY 10/29/18 Quetiapine Fumarate [Seroquel] 100 mg PO BID 10/29/18 Sodium Bicarbonate Tab 650 mg PO DAILY 10/29/18 Amlodipine Besylate [Norvasc] 10 mg PO DAILY 07/14/19 Apixaban [Eliquis] 5 mg PO BID 07/14/19 Arformoterol Tartrate Nebs [Brovana Nebs] 15 mcg NEB RTBID 07/14/19 Ascorbic Acid [Vitamin C] 500 mg PO DAILY 07/14/19 Atorvastatin Calcium [Lipitor] 20 mg PO DAILY 07/14/19 Budesonide (Inhalation) [Budesonide] 0.25 mg IN BID 07/14/19 Clonidine HCl 0.1 mg PO Q6H PRN 07/14/19 Divalproex Sodium ER [Depakote ER] 2 tablet PO BEDTIME 07/14/19 Duloxetine HCl [Cymbalta] 60 mg PO BEDTIME 07/14/19 Insulin Aspart [Novolog Flexpen] 0 - 8 unit SC TIDFD 07/14/19 Isosorbide Dinitrate-Hydralazi [Bidil 20-37.5 mg] 1 tab PO Q8H 07/14/19 Multiple Vitamin [Multi Vitamin] 1 tab PO DAILY 07/14/19 Potassium Chloride [Potassium Chloride ER] 20 meq PO BID 07/14/19 Trazodone HCl [Trazodone Hydrochloride] 50 mg PO BEDTIME 07/14/19 Valsartan 160 mg PO DAILY 07/14/19 Insulin Detemir [Levemir] 5 unit SUBCU QAM 30 Days #30 vial 07/16/19
[2019-07-24] MEDS: PIPERACILLIN/TAZOBACTAM 3.375 GM in SODIUM CHLORIDE 0.9% 100ML 100 ML IVPB ONE (21:50)
[2019-07-24] MEDS ORDERED: INSULIN, REG.(HUMAN) 100 U/ML VIAL IV ONE (22:11)
[2019-07-24] MEDS ORDERED: SODIUM CHLORIDE 0.9% 100ML 100 ML IVPB ONE (22:13)
[2019-07-24] MEDS: CALCIUM GLUCONATE INJ 1 GM/10 ML VIAL IV ONE (22:22)
[2019-07-24] MEDS: DEXTROSE 50% 25 GM/50 ML SYG IV ONE (22:22)
--- NOTE | 2019-07-24 22:25 | RAD ---
EXAM: AP CHEST RADIOGRAPH CLINICAL INDICATION: Sepsis. COMPARISON: Compared to chest radiograph of July 15, 2019. FINDINGS: Cardiac size remains enlarged. Improving bilateral pulmonary consolidations. Unchanged moderate size right pleural effusion. No pneumothorax, pneumomediastinum or free peritoneal gas. No hilar or mediastinal lymphadenopathy. No mediastinal widening. Bones are intact on this single view. IMPRESSION: Improving bilateral pulmonary consolidations. Unchanged right pleural effusion. No pneumothorax. Electronically signed by: Acrhie Gregg MD 07/24/2019 10:23 PM CDT
[2019-07-24] MEDS: SODIUM BICARBONATE SYRINGE 50 MEQ/50 ML SYG IV ONE (22:30)
[2019-07-24] MEDS: SODIUM CHLORIDE 0.9% 500ML 500 ML IVS ONE (23:42)
[2019-07-24] MEDS ORDERED: DEXTROSE 5% 250ML 250 ML ONE (23:47)
[2019-07-24] MEDS ORDERED: NOREPINEPHRINE BITARTRATE 4 MG/4 ML VIAL IVPB ONE ×2 (23:47→23:48)
[2019-07-24] MEDS: NOREPINEPHRINE BITARTRATE 4 MG in DEXTROSE 5% 250ML 250 ML IVPB SCH (23:49)
--- NOTE | 2019-07-25 01:24 | RAD ---
EXAM: Chest 1 View 07/25/2019 at 12:49 AM HISTORY: tlcl placement verification, central venous catheter placement COMPARISON: Chest 1 view 07/24/2019 at 9:45 PM TECHNIQUE: Chest 1 view AP portable FINDINGS: Evaluation more difficult due to patient body habitus. Moderate decreased inspiration (decreased lung volumes) makes evaluation more difficult and may accentuate heart size and pulmonary vascularity. Left subclavian CVC tip overlies right apex possibly located in right brachiocephalic vein. No pneumothorax is seen. Moderate dense right lung hazy opacities. Moderate bilateral perihilar interstitial lung prominence. Central pulmonary vascular distention. Right lateral costophrenic angle blunting. Heart size moderately enlarged. Diffuse decreased bone density. IMPRESSION: 1. New left subclavian CVC tip overlies right apex possibly located in right brachiocephalic vein. Ideally the CVC should be repositioned so CVC tip overlies region of SVC/RA junction. If this is performed, then follow up chest radiograph is recommended to evaluate CVC tip location. 2. Moderate dense right lung hazy opacities. Causes include infection, pulmonary edema, and atelectasis. 3. Cardiomegaly, bilateral lung interstitial prominence, and central pulmonary vascular distention suggests CHF with interstitial pulmonary edema. 4. Small right pleural effusion. Electronically signed by: Dane Wallace MD 07/25/2019 1:23 AM CDT
[2019-07-25 02:40] VITALS: BP 105/57; TEMP 96.8; O2SAT 93
== END 2019-07-25 01:05 | disposition short-term general hospital (02) ==
LOC: ER 21:23
DX: A41.9 Sepsis, unspecified organism (principal); R41.0 Disorientation, unspecified; I48.91 Unspecified atrial fibrillation; I10 Essential (primary) hypertension; E11.9 Type 2 diabetes mellitus without complications; J44.9 Chronic obstructive pulmonary disease, unspecified; I50.9 Heart failure, unspecified; Z79.4 Long term (current) use of insulin; Z86.73 Personal history of transient ischemic attack (TIA), and cerebral infarction without residual deficits; Z95.5 Presence of coronary angioplasty implant and graft
CPT/HCPCS: 36415; 36416; 36600; 71045; 80053; 82550; 82553; 82803; 82805; 82948; 83605; 84484; 85025; 85379; 85610; 85730; 87040; 93005; J2543; J7030; J7050; J7060; J7799